=== PATIENT | male | born 1965 | race American Indian/Alaskan Native ===

== ENCOUNTER 2024-04-06 10:44 | Inpatient (IN) | payer OTHER, MEDICAID, SELFPAY ==
[2024-04-06] VITALS (10 sets, daily range): BP systolic 87–119; BP diastolic 54–74; PULSE 75–106; RESP 14–98; TEMP 36.7–37.7; O2SAT 95–100; BMI 29.1; BMI 28.3
--- NOTE | 2024-04-06 10:59 | EKG_ITS ---
[facility] Test Date: 2024-04-06 Pat Name: YAZAN WHITMORE Department: Room: - Gender: Male [employer]: : 1965 Requested By: Emelyn Mendoza Order Number: [id number] Reading MD: Emelyn Mendoza Measurements Intervals [place] Rate: 93 P: 10 HI: 158 QRS: 37 QRSD: 88 T: 43 QT: 339 QTc: 423 Interpretive Statements SINUS RHYTHM WITH OCCASIONAL VENTRICULAR PREMATURE COMPLEXES Compared to ECG 03/15/2024 22:12:43 Ventricular premature complex(es) now present Atrial fibrillation no longer present ST (T wave) deviation no longer present /store/S0/[id number]/ecg/[id number].pdf
--- NOTE | 2024-04-06 11:04 | PC.NURSE ---
Patient presents to the ER with complaint of chest heaviness following dialysis at 0835 this morning where they pulled 2.7. Hives and rash appearing 3 days ago following completion of Cipro 7 days ago for UTI. Patient is also hypotensive and complaining of chest/back pain.
[2024-04-06] MEDS: SODIUM CHLORIDE 0.9% 250 ML 250 ML 999 ML IV ×2 (11:24→12:00)
[2024-04-06] MEDS: fentaNYL CIT INJ 50 mCg/ML AMP 2ML IVP (11:24)
[2024-04-06] MEDS: FAMOTIDINE INJ 10 MG/ML VIAL 2 ML 20 MG IVP (11:25)
[2024-04-06] MEDS: MethylPREDNISolone SOD SUCC 62.5 MG/ML 2ML VIAL 125 MG IVP (11:25)
[2024-04-06] MEDS: DiphenhydrAMINE INJ 50 MG/ML VIAL 25 MG IVP (11:25)
--- NOTE | 2024-04-06 11:26 | XR_ITS ---
Examination: AP chest single view TECHNIQUE: AP portable upright chest single view Exam date and time: March 29, 2024 11:30 AM Comparison the second 2023 INDICATIONS: Onset chest pain today. FINDINGS: Apparent elevation left hemidiaphragm Right internal jugular dialysis catheter tip satisfactory position Moderate vascular congestion Mild prominence left ventricle IMPRESSION: Recommend lateral chest view follow-up to differentiate elevated left hemidiaphragm from retrocardiac gastric hernia
[2024-04-06 11:37] LABS: Basophils % (Auto) 0 % (0-2.5); Eosinophils % (Auto) 11 % (0-10); Hematocrit 33.9 % (41.0-53.0); Hemoglobin 10.9 g/dL (13.5-16.0); Immature Granulocytes % (Auto) 1 % (0-0); Lymphocytes # (Auto) 0.7 Thou/mm3 (1.0-4.8); Lymphocytes % (Auto) 7 % (10-50); Mean Corpuscular HGB Conc 32.2 g/dl (31.0-37.0); Mean Corpuscular Hemoglobin 27.8 pg (25.0-35.0); Mean Corpuscular Volume 87 fL (80-100); Monocytes # (Auto) 0.4 Thou/mm3 (0.0-0.8); Monocytes % (Auto) 4 % (0-12); Neutrophils # (Auto) 7.3 Thou/mm3 (1.8-7.7); Neutrophils % (Auto) 77 % (37-80); Nucleated Red Blood Cell % 0 /100 WBC (0); Platelet Count 239 Thou/mm3 (140-440); RDW Standard Deviation 53.6 fL (35.1-43.9); Red Blood Count 3.92 Miln/mm3 (4.50-5.90); White Blood Count 9.5 Thou/mm3 (3.8-10.6)
[2024-04-06 11:52] LABS: INR 1.1 (0.9-1.3); Partial Thromboplastin Time 35.3 Seconds (22.0-36.0); Prothrombin Time 11.7 Seconds (9.0-12.2)
--- NOTE | 2024-04-06 11:52 | EDNOTE_ITS ---
ED Chest Pain RME/HPI General Chief Complaint: Chest Pain Stated Complaint: chest pain after dialysis, cant pee Time Seen by Provider: 04/06/24 11:04 Arrival date/time: 04/06/24 10:44 RME / HPI RME / HPI narrative: Patient is a 58 year old male HX ESRD presenting to the ED BIBA from dialysis for low BP and chest pain post treatment. Reports accompanied upper back pain and states he cant pee. Does not rate or describe pain. Recent peritoneal catheter placed however has not been used yet. Denies fevers, chills, nausea,vomiting, diarrhea, constipation, urinary symptoms. Further history includes hypertension. Related Data Home Medications ?Medication ?Instructions ?Recorded ?Confirmed cetirizine 10 mg tablet 10 mg PO QDAY 10/07/23 04/06/24 sucroferric oxyhydroxide 500 mg 500 mg PO TIDWM 04/06/24 04/06/24 chewable tablet (Velphoro) Previous Rx's ?Medication ?Instructions ?Recorded lidocaine 5 % topical patch 1 patch topical QDAY back pain 1 10/11/23 (DermacinRx Lidocan) month #30 ea pantoprazole 40 mg tablet,delayed 40 mg PO QDAY #60 tabs 10/14/23 release sevelamer carbonate 800 mg tablet 2,400 mg (3 x 800 mg) PO TIDWM 30 03/17/24 days #270 tabs amlodipine 5 mg tablet 5 mg PO QDAY #30 tabs 04/08/24 calamine 8 %-zinc oxide 8 % lotion 1 applic top UD PRN Itching #177 mL 04/08/24 diphenhydramine HCl 25 mg capsule 25 mg PO BID #20 caps 04/08/24 (Benadryl) furosemide 20 mg tablet (Lasix) 20 mg PO BID #30 tabs 04/08/24 metoprolol tartrate 25 mg tablet 12.5 mg (1/2 x 25 mg) PO BID 30 04/08/24 days #30 tabs Allergies Allergy/AdvReac Type Severity Reaction Status Date / Time vancomycin Allergy Intermediate Rash Unverified 04/08/24 09:11 ciprofloxacin [From Cipro] Allergy Rash Verified 04/06/24 10:45 Review of Systems Review of Systems Narrative Review of Systems: Gen: No fever, no chills, no weight loss EYES: No discharge, no visual changes, no pain HEENT: No ear pain, no congestion, no sore throat PULM: No shortness of breath, no cough, no congestion CV: + chest pain, no dyspnea on exertion, no palpitations GI: No nausea, no vomiting, no diarrhea, no pain, no constipation : +urinary urgency. No frequency, no dysuria Musc/skel:+upper back pain. No joint pain Skin: No rash Psyc: No hallucinations, no depression Heme/Lymph: No easy bleeding or bruising tendencies Neuro: No weakness, no headache Past Medical History Past Medical History NEUROLOGIC: Negative Neurological Disorders or Seizures CARDIAC: Positive Cardiac Disorders, Cardiac Arrhythmia and Hypertension; Negative Congestive Heart Failure RESPIRATORY: Positive Pneumonia; Negative Chronic Obstructive Pulmonary Disease (COPD) GASTROINTESTINAL: Positive Gastrointestinal Disorders (umbilcal hernia), Gastrointestinal Bleed, Ulcer, Hemorrhoids and Obesity GENITOURINARY: Positive Genitourinary Disorders, Renal Disease and Dialysis MUSCULOSKELETAL: Negative Musculoskeletal Disorders ENDOCRINE: Negative Endocrine Disorders, Diabetes Mellitus Type 1 or Diabetes Mellitus Type 2 HEMATOLOGIC: Positive Blood Disorders and Anemia PSYCHO/SOCIAL: Positive Anxiety OTHER HISTORY: Positive Hospitalization, Blood Transfusions, Chicken Pox, Measles and Mumps; Negative Autoimmune Disease, Shingles, Falls, Blood Transfusion Reaction, Anesthesia Reactions, Chemotherapy, Radiation Therapy, MRSA, Cancer or Lung Cancer Family History FAMILY HISTORY: Positive Family Respiratory Disorders, Family Cardiac Disorders, Family Cancer and Family Surgery; Negative Family Psychiatric Problems, Family Gastrointestinal Problems or Family Anesthesia Reaction Surgical History SURGICAL: Positive Abdominal Surgery; Negative Cardiac Surgery Social History SMOKING STATUS: Never smoker SECOND HAND EXPOSURE: No ED Exam Narrative Physical exam: GENERAL APPEARANCE: alert and oriented x 4, well-developed, well-nourished, no acute distress HEENT: Normocephalic, atraumatic; pupils equal, round, reactive to light; EOMI; mucous membranes pink, moist; oropharynx clear NECK: Supple LUNGS: CTABL; no wheezes, no rales, no rhonchi HEART: Regular rate, regular rhythm; normal S1, S2; no murmurs ABDOMEN: non distended; normal BS; soft, no tenderness, no guarding, no rebound; no masses, no organomegaly, no hernia BACK: no CVA tenderness EXTREMITIES: atraumatic; no edema NEUROLOGIC: awake; alert and oriented x4; cranial nerves II-XII grossly intact; no focal sensory or motor deficits PSYCHIATRIC: appropriate mood and affect SKIN: warm, dry, diffuse urticarial rash confluent on chest and abdomen and extending onto upper and lower extremities Course Quality Measures none Orders Category Date Time Status COVID-19 Screening Questionnaire NOW Care 04/06/24 13:43 Completed Lunchroom Aide Q4H START 00 Care 04/06/24 11:26 Completed Decision to Admit X1 Care 04/06/24 13:43 Completed EKG (ED ONLY) *Do not use* NOW Care 04/06/24 10:59 Completed EKG (ED Only) Stat Exams 04/06/24 10:59 Draft XR chest 1V portable Stat Exams 04/06/24 11:26 Completed B-Type Natriuretic Peptide Stat Lab 04/06/24 11:15 Completed Blood Culture (Lab) Stat Lab 04/06/24 12:30 Completed Body Fld Cult w Lena & Gram St Routine Lab 04/06/24 12:45 Completed CBC Stat Lab 04/06/24 11:15 Completed Comprehensive Metabolic Panel Stat Lab 04/06/24 11:15 Completed Lactate (Lactic Acid) Stat Lab 04/06/24 11:15 Completed Lactic Acid, 3 HR Stat Lab 04/06/24 15:08 Completed Lipase Stat Lab 04/06/24 11:15 Completed Magnesium Stat Lab 04/06/24 11:15 Completed Partial Thromboplastin Time Stat Lab 04/06/24 11:15 Completed Peritoneal Cell Cnt/Diff Routine Lab 04/06/24 12:45 Completed Phosphorous Routine Lab 04/06/24 15:08 Completed Procalcitonin Stat Lab 04/06/24 11:15 Completed Prothrombin Time with INR Stat Lab 04/06/24 11:15 Completed Troponin I Stat Lab 04/06/24 11:15 Completed DiphenhydrAMINE INJ [Benadryl Inj] Med 04/06/24 11:15 Discontinued 25 mg IVP X1 ONE Famotidine Inj [Pepcid Inj] Med 04/06/24 11:15 Discontinued 20 mg IVP X1 ONE HYDROmorphone INJ [Dilaudid Inj] Med 04/06/24 14:57 Discontinued 0.5 mg IVP X1 ONE Lidocaine 2% Abboject 5 ml [Xylocaine 2% Abboject 5 ml] Med 04/06/24 12:16 Discontinued 100 mg IV X1 ONE Lidocaine Jelly 2% Urojet [Xylocaine Jelly 2% Urojet] Med 04/06/24 12:21 Discontinued See Dose Instructions TOP X1 ONE MethylPREDNISolone.* [SoluMEDROL Inj] Med 04/06/24 11:16 Discontinued 125 mg IVP X1 ONE Piper/Tazo 3.375 gm [Zosyn] Med 04/06/24 11:58 Discontinued 3.375 gm in 50 ml IV X1 Sodium Chloride 0.9% 250 ml [Ns] 250 ml Med 04/06/24 11:05 Discontinued IV 999 mls/hr Sodium Chloride 0.9% 250 ml [Ns] 250 ml Med 04/06/24 11:29 Discontinued IV 999 mls/hr Sodium Chloride 0.9% 500 ml [Ns] 500 ml Med 04/06/24 12:16 Discontinued IV 999 mls/hr Vancomycin Inj 1,000 mg Med 04/06/24 11:58 Discontinued Sodium Chloride 0.9% 250 ml [Ns] 250 ml IV X1 fentaNYL INJ [Sublimaze Inj] Med 04/06/24 11:15 Discontinued 50 mcg IVP X1 ONE Vital Signs Vital signs: Vital Signs Temperature 98.5 F 04/06/24 10:49 Pulse Rate 106 H 04/06/24 10:49 Respiratory Rate 18 04/06/24 10:49 Blood Pressure 87/56 L 04/06/24 10:49 Pulse Oximetry (%) 98 04/06/24 10:49 Oxygen Delivery Method Room Air 04/06/24 10:49 Chest Pain Patient data External records reviewed:: [facility] previous records Clinical information provided by:: patient Social determinants that could affect healthcare access:: none Patient has the following chronic illnesses:: ESRD , hypertension How is presenting disease/condition affected by chronic disease/condition?: exacerbated by Evaluation data The following diagnostics were reviewed and interpreted by me:: lab results, radiology exam(s) and EKG tracing(s) (Sinus rhythm, rate 93, normal axis, normal ST and T waves, no acute ischemic changes. ) Lab and/or radiology exams considered but not ordered:: none Interpretation Summary: Lactic 4.00 Ordering Physician: Emelyn Oquendo MD Date of Service: 04/06/24 Procedure(s): XR chest 1V portable Accession Number(s): [id number] cc: Vini Gusman MD; Lore Castañeda MD; Emelyn Oquendo MD~ Examination: AP chest single view TECHNIQUE: AP portable upright chest single view Exam date and time: March 29, 2024 11:30 AM Comparison the second 2023 INDICATIONS: Onset chest pain today. FINDINGS: Apparent elevation left hemidiaphragm Right internal jugular dialysis catheter tip satisfactory position Moderate vascular congestion Mild prominence left ventricle IMPRESSION: Recommend lateral chest view follow-up to differentiate elevated left hemidiaphragm from retrocardiac gastric hernia Dictated By: Vini Gusman MD Signed By: <Electronically signed by Vini Gusman MD in OV> 04/06/24 1152 Medications / Prescriptions Medications or Prescriptions considered but not ordered:: none Medication administrations:: Medication Administration History Discontinued Medications Acetaminophen (Acetaminophen 325 Mg Tablet) 650 mg PO Q6H PRN PRN Reason: Fever >101.5 Stop: 05/06/24 15:02 Calamine (Calamine Lotion 120 Ml Btl) 0 ml TOP UD PRN; Protocol PRN Reason: ITCHING Stop: 05/07/24 15:01 Last Admin: 04/07/24 18:08 Dose: 1 applicatio Documented By: DM Diphenhydramine HCl (Diphenhydramine Inj 50 Mg/Ml Vial) 25 mg IVP X1 ONE Stop: 04/06/24 11:16 Last Admin: 04/06/24 11:25 Dose: 25 mg Documented By: RD Diphenhydramine HCl (Diphenhydramine 25 Mg Capsule) 25 mg PO QDAY PRN PRN Reason: itchiness Stop: 05/06/24 15:59 Last Admin: 04/06/24 19:48 Dose: 25 mg Documented By: MP Diphenhydramine HCl (Diphenhydramine 25 Mg Capsule) 25 mg PO Q6HR PRN; Protocol PRN Reason: itchiness Stop: 05/06/24 15:45 Last Admin: 04/07/24 23:19 Dose: 25 mg Documented By: AL Doxycycline Hyclate (Doxycycline 100 Mg Tablet) 100 mg PO BID RAFIA Stop: 04/14/24 10:59 Last Admin: 04/08/24 09:59 Dose: Not Given Documented By: VS Non-Admin Reason: Not In Room Admin: 04/07/24 21:02 Dose: 100 mg Documented By: Admin: 04/07/24 14:02 Dose: 100 mg Documented By: NIESHA Comments: pt was in dialysis, ok to give at this time per Dr Rosado and pharmacist Ashley. Epoetin Jesus (Epoetin Jesus-Epbx Inj 10,000 Unit/Ml Vial (Esrd)) 10,000 unit SC X1 ONE Stop: 04/07/24 13:01 Last Admin: 04/07/24 13:02 Dose: 10,000 unit Documented By: MONIKA Famotidine (Famotidine Inj 10 Mg/Ml Vial 2 Ml) 20 mg IVP X1 ONE Stop: 04/06/24 11:16 Last Admin: 04/06/24 11:25 Dose: 20 mg Documented By: GEORGI Fentanyl Citrate (Fentanyl Cit Inj 50 Mcg/Ml Amp 2ml) 50 mcg IVP X1 ONE Stop: 04/06/24 11:16 Last Admin: 04/06/24 11:24 Dose: 50 mcg Documented By: GEORGI Heparin Sodium (Porcine) (Heparin Sod Inj 1000 Unit/Ml Vial 10 Ml) 3,500 unit INDWELLCAT X1 PRN PRN Reason: DIALYSIS Stop: 04/21/24 12:22 Hydromorphone HCl (Hydromorphone Inj 2 Mg/Ml Vial) 0.5 mg IVP X1 ONE Stop: 04/06/24 14:58 Last Admin: 04/06/24 15:41 Dose: 0.5 mg Documented By: GEORGI Sodium Chloride (Ns) 250 mls @ 999 mls/hr IV .Q16M ONE Stop: 04/06/24 11:20 Last Infusion: 04/06/24 11:45 Dose: Infused Documented By: Admin: 04/06/24 11:24 Dose: 999 mls/hr Documented By: GEORGI Sodium Chloride (Ns) 250 mls @ 999 mls/hr IV .Q16M ONE Stop: 04/06/24 11:44 Last Infusion: 04/06/24 12:20 Dose: Infused Documented By: Admin: 04/06/24 12:00 Dose: 999 mls/hr Documented By: GEORGI Vancomycin HCl 1,000 mg/ (Sodium Chloride) 250 mls @ 250 mls/hr IV X1 ONE Stop: 04/06/24 12:57 Last Infusion: 04/06/24 14:56 Dose: 0 mls/hr Documented By: Admin: 04/06/24 14:32 Dose: 250 mls/hr Documented By: Piperacillin/Tazobactam/Dextrose (Zosyn) 3.375 gm in 50 mls @ 100 mls/hr IV X1 ONE Stop: 04/06/24 12:27 Last Infusion: 04/06/24 14:25 Dose: Infused Documented By: Admin: 04/06/24 13:50 Dose: 100 mls/hr Documented By: DELFINO Sodium Chloride (Ns) 500 mls @ 999 mls/hr IV .Q31M ONE Stop: 04/06/24 12:46 Last Infusion: 04/06/24 13:00 Dose: Infused Documented By: Admin: 04/06/24 12:25 Dose: 999 mls/hr Documented By: GEORGI Piperacillin/Tazobactam/Dextrose (Zosyn) 3.375 gm in 50 mls @ 100 mls/hr IV Q8HR RAFIA Stop: 04/13/24 15:21 Last Admin: 04/07/24 05:21 Dose: 100 mls/hr Documented By: Infusion: 04/06/24 22:10 Dose: Infused Documented By: Admin: 04/06/24 21:40 Dose: 100 mls/hr Documented By: Infusion: 04/06/24 17:34 Dose: Infused Documented By: Admin: 04/06/24 17:04 Dose: 100 mls/hr Documented By: GEORGI Piperacillin/Tazobactam/Dextrose (Zosyn) 3.375 gm in 50 mls @ 12.5 mls/hr IV Q12HR RAFIA Stop: 04/14/24 20:59 Last Admin: 04/07/24 21:02 Dose: 12.5 mls/hr Documented By: ALISON Lidocaine (Lidocaine 5% 1 Patch) 1 patch TOP X1 ONE Stop: 04/07/24 23:08 Last Admin: 04/07/24 23:18 Dose: 1 patch Documented By: ALISON Lidocaine HCl (Lidocaine Inj 2% 20 Mg/Ml Syringe 5 Ml) 100 mg IV X1 ONE Stop: 04/06/24 12:17 Last Admin: 04/06/24 13:21 Dose: Not Given Documented By: GEORGI Non-Admin Reason: Cancelled by Provider Lidocaine HCl (Lidocaine Jelly 2% (Urojet) 10 Ml Tube) 0 ml TOP X1 ONE Stop: 04/06/24 12:22 Last Admin: 04/06/24 12:12 Dose: 10 ml Documented By: GEORGI Methylprednisolone Sodium Succinate (Methylprednisolone Sod Succ 62.5 Mg/Ml 2ml Vial) 125 mg IVP X1 ONE Stop: 04/06/24 11:17 Last Admin: 04/06/24 11:25 Dose: 125 mg Documented By: GEORGI Non-Formulary Medication (Sucroferric Oxyhydroxide [Velphoro]) 500 mg PO TIDWM [facility] Stop: 05/07/24 07:59 Last Admin: 04/08/24 12:30 Dose: Not Given Documented By: TAMEKA Non-Admin Reason: Medication Not Available Admin: 04/08/24 09:58 Dose: Not Given Documented By: BEBA Non-Admin Reason: Medication Not Available Admin: 04/07/24 17:50 Dose: Not Given Documented By: NIESHA Non-Admin Reason: Medication Not Available Admin: 04/07/24 13:53 Dose: Not Given Documented By: NIESHA Non-Admin Reason: Medication Not Available Admin: 04/07/24 07:58 Dose: Not Given Documented By: NIESHA Non-Admin Reason: Medication Not Available Ondansetron HCl (Ondansetron Inj 2 Mg/Ml Inj 2 Ml) 4 mg IV Q6H PRN; Protocol PRN Reason: NAUSEA OR VOMITING Stop: 05/06/24 15:02 Pantoprazole Sodium (Pantoprazole 40 Mg Tablet) 40 mg PO QDAY [facility] Stop: 05/07/24 08:59 Last Admin: 04/08/24 09:59 Dose: Not Given Documented By: VS Non-Admin Reason: Not In Room Admin: 04/07/24 08:00 Dose: 40 mg Documented By: NIESHA Pharmacy Consult (Pharmacy To Dose Vancomycin) 1 each IV QDAY PRN PRN Reason: PROTOCOL Stop: 05/07/24 08:59 Prednisone (Prednisone 20 Mg Tablet) 20 mg PO QDAY [facility] Stop: 05/07/24 18:29 Last Admin: 04/08/24 09:59 Dose: Not Given Documented By: BEBA Non-Admin Reason: Not In Room Admin: 04/07/24 18:53 Dose: 20 mg Documented By: NIESHA Sevelamer Carbonate (Sevelamer Carbonate 800 Mg Tablet) 800 mg PO TIDWM RAFIA Stop: 05/06/24 17:29 Last Admin: 04/08/24 12:30 Dose: 800 mg Documented By: Admin: 04/08/24 09:58 Dose: Not Given Documented By: VS Non-Admin Reason: Not In Room Admin: 04/07/24 17:50 Dose: 800 mg Documented By: Admin: 04/07/24 13:57 Dose: Not Given Documented By: NIESHA Non-Admin Reason: Not In Room Comments: Pt was in dialysis. Admin: 04/07/24 07:57 Dose: 800 mg Documented By: Admin: 04/06/24 18:16 Dose: 800 mg Documented By: Ivanna see above Consultations Consultation(s) initiated? (list below): Yes Consultation #1 (Physician, Specialty, Details): Discussed with automation qa tester Dr. Early Time: 11:55 Consultation #2 (Physician, Specialty, Details): Discussed with hospitalist Dr. Valera regarding to the patients current status and results, agrees to admission Time: 13:30 Diagnosis Chest Pain Differential Diagnosis: other (rash, drug erruption, allergic reaction, viral exanthem, sepsis, dehydration, ACS) Most likely diagnosis given after review of the tests above:: sepsis, rash, hypotension Admission Indicated Admission indicated?: indicated Admission Request Was there a request for admission?: Yes Admission Attestation Admission request attestation: Discussed case with [] from Hospitalist service regarding admission. Discussed patients ED course, exam findings, labs, and radiology results. The Hospitalist [agrees,declines] to accept the patient for admission. Disposition Plan Disposition Plan: Admit Critical Care Time Critical Care Time Critical Care Time: Yes Total Critical Care Time (min.): 35 Attestation: The high probability of sudden, clinically significant deterioration in the patient?s condition required the highest level of my preparedness to intervene urgently. The services I provided to this patient were to treat and/or prevent clinically significant deterioration. Services included the following: chart data review, reviewing nursing notes and/or old charts, documentation time, fashion consultant collaboration regarding findings and treatment options, medication orders and management, direct patient care, vital sign assessments and ordering, interpreting and reviewing diagnostic studies and lab tests. Aggregate critical care time includes only time during which I was engaged in work directly related to the patient?s care, as described above, whether at bedside or elsewhere in the Emergency Department. It did not include time spent performing other reported procedures or the services of residents, students, nurses or physician assistants. Discharge Plan Plan Patient Disposition: Admit Acute Care w/in Hospital Problem List Clinical Impression: Sepsis
[2024-04-06 12:01] LABS: B-Type Natriuretic Peptide 27 pg/mL (0-100)
[2024-04-06 12:11] LABS: Alanine Aminotransferase 21 U/L (10-49); Albumin, Serum 3.6 gm/dL (3.5-5.0); Albumin/Globulin Ratio 1.2 (1.2-2.2); Alkaline Phosphatase 98 U/L (46-116); Anion Gap 10 (7-16); Aspartate Amino Transferase 13 U/L (0-34); BUN/Creatinine Ratio 5 Ratio (12-20); Bilirubin,Total 0.5 mg/dL (0.3-1.2); Blood Urea Nitrogen 36 mg/dL (9-23); Calcium (Corrected) 9.3 mg/dL (8.5-10.1); Carbon Dioxide 25.1 mMol/L (20.0-31.0); Chloride 100 mMol/L (98-107); Globulin 3.1 gm/dL (2.3-3.5); Glucose 172 mg/dL (74-106); Lipase 29 U/L (12-53); Magnesium 1.8 mg/dL (1.6-2.6); Osmolality,Calculated 282 (275-295); Potassium 3.9 mMol/L (3.4-5.1); Procalcitonin 0.64 ng/ml (0.0-0.49); Sodium 135 mMol/L (136-145); Total Protein 6.7 gm/dL (5.7-8.2); Troponin I < 0.020 ng/mL (0.0-0.045); eGFR 9 See Note
[2024-04-06] MEDS: LIDOCAINE JELLY 2% (Urojet) 10 ML TUBE TOP (12:12)
[2024-04-06] MEDS: SODIUM CHLORIDE 0.9% 500 ML 500 ML 999 ML IV (12:25)
[2024-04-06 13:19] LABS: Peritoneal Fluid WBC 1344 /cmm
[2024-04-06 13:27] LABS: Peritoneal Fluid Color Straw
[2024-04-06 13:28] LABS: Peritoneal Fluid Appearance Cloudy; Peritoneal Fluid Mononuclear 71 %; Peritoneal Fluid Polynuclear 29 %; RBC,Peritoneal Fluid 1000 /cmm
[2024-04-06] MEDS: PIPER/TAZO 3.375 GM 3.375 GM/50 ML BAG IV ×3 (13:50→21:40)
--- NOTE | 2024-04-06 13:56 | PC.NURSE ---
HOSPITALIST AT BEDSIDE.
[2024-04-06] MEDS: Vancomycin Inj 1,000 MG in SODIUM CHLORIDE 0.9% 250 ML 250 ML 250 MG IV (14:32)
[2024-04-06 14:33] LABS: Reflex Lactate? Y
--- NOTE | 2024-04-06 14:51 | PC.NURSE ---
Patient states pain 8/10. Informed ER provider and received verbal order for 0.5mg hydromorphone. Patient states neck is itchy and burning after Vancomycin was started. Informed ER provider and givenv erbal order to stop infusion.
[2024-04-06] MEDS: HYDROmorphone INJ 2 MG/ML VIAL 0.5 MG IVP (15:41)
[2024-04-06 15:53] LABS: Phosphorous 3.1 mg/dL (2.4-5.1)
--- NOTE | 2024-04-06 16:32 | XR_ITS ---
Examination: CT chest, without intravenous contrast. CT abdomen, without intravenous contrast. CT pelvis, without intravenous contrast. 2-D sagittal and coronal reconstructions. 3-D reconstructions. Date and time of exam:April 06, 2024 at 1723 hrs. Indications: Abdominal pain and hypertension today CTDI vol (mgy) 9.75 DLP (MGycm)764 Technique: Multiple CT images, 3.0 mm slice thickness, obtained chest, abdomen, pelvis, with the high-resolution 64 slice scanner.. Sagittal and coronal 2-D reconstructions are obtained. 3-D reconstructions Low dose protocols were performed. One or more of the following dose reduction techniques were used; automated exposure control, adjustment of the mA and/or KV according to patient size, use of iterative reconstruction technique. Findings: Right internal jugular dialysis catheter tip SVC satisfactory position Aorta is not enlarged No pulmonary artery enlargement Mild enlargement cardiac contour No paratracheal tracheobronchial or bronchopulmonary adenopathy Large retrocardiac gastric hernia 5 mm pulmonary nodule right lower lobe image 116 Moderate vascular congestion No lobar pneumonia No visualized liver or splenic lesions No definite gallstones No pancreatic or adrenal mass Atrophic kidneys no hydronephrosis Aorta normal size Peritoneal dialysis catheter in the right pelvis adjacent to the colon No abdominal or pelvic abscess No peritonitis pattern Mediolateral prostate dimension 4.0 cm Tiny fat-containing inguinal hernias Moderate osteopenia Impression: Moderate vascular congestion No lobar pneumonia 5 mm pulmonary nodule right lower lobe, recommend imaging follow-up No abdominal or pelvic abscess No findings of peritonitis Peritoneal dialysis catheter in the right pelvis adjacent to the colon
--- NOTE | 2024-04-06 16:39 | ESHP_ITS ---
<Statement entered by Reggie Roldan MD - 04/06/24 16:46> This patient 58-year-old male with past medical history of ESRD on hemodialysis presented with hypotension postdialysis and recently received peritoneal dialysis catheter, hypertension and was getting education on peritoneal dialysis and peritoneal dialysis has not been started yet. Patient was found to have 1 out of 4 SIRS criteria with tachycardia and possible source related to GI secondary to peritoneal dialysis catheter. Lactic acidosis likely related to hypotension. Patient is admitted for workup of sepsis with source unknown at this point likely related to PD catheter, delayed hypersensitivity reaction, drug eruption. Ordered CT chest abdomen pelvis. Follow-up on blood cultures/MRSA screen. Started on IV antibiotic therapy. Nephrology will follow the case. Currently holding antihypertensives given soft blood pressure. Full med rec pending. Of note, patient was taking ciprofloxacin for UTI a week ago and while he was taking ciprofloxacin day 5 he noticed pain and flare reaction first on back transition to chest and then on his lower extremities which still can be seen. The rash is blanchable and itchy. Will continue with Benadryl as needed for that and likely monitor tomorrow. Added ciprofloxacin in allergy list for patient. All labs and orders were reviewed. I saw and examined the patient, and I agree with current management stated by Dr Alonzo DO,PGY1. Plan of care was discussed with the attending physician and resident physician. Disclaimer: Despite multiple revisions, due to the dictation software being used, the document bellow may not be free of grammatical errors including phonetic/typographic errors. However, this does not deter from our commitment to providing health care in the patient's best interest in mind. Dr. Yuli MD, PGY 2 Documentation for date of: 04/06/24 HPI History of Present Illness History of present illness: Mike Samayoa is a 58-year-old male with a past medical history of ESRD (Saturday, Dr. Early), FSGS, hypertension, GERD, GI bleed, and seasonal allergies who comes to the ED for evaluation of weakness, hypotension, lower back pain, chest pressure and skin rash. Patient reports that he was getting dialysis today, had 2.6 L of fluid removed, and notes that his blood pressure had been low, around the upper 80s systolic. He was also complaining of some chest pressure and felt weak as well. He also stated that he had recently been discharged from [facility] and was discharged on a course of antibiotics called ciprofloxacin and his last dose being on March 26, and shortly after his last dose he started to notice a rash that had covered his upper and lower extremities including his abdomen and back that he described as red and itchy at times. He also states that he has started to use a new laundry detergent shortly after that and also says that he began using a new bacterial soap which he washed with his entire body and that also came after the last dose of ciprofloxacin. He does state that he had a rash not is bad as this but had it when he was a child. Says that he sees an chemical milling processor outpatient as well. Says that his gas jockey is Dr. Early. Denies any symptoms of anaphylaxis including shortness of breath, tongue enlargement, throat closing. Says that he has been taking Benadryl for his rash which has slightly improved the rash but also noticed that he has been using hydrocortisone all over his body but that does not help his rash. He is not sure where his rash is coming from. Says that he has some chest pressure and is not pain, says he feels a bit weak and noticed that sometimes happens after dialysis. Also endorses chronic lower back pain. No other complaints at this time. ED course: He arrived to the ED with tachycardia (105). He was worked up and was found to have hemoglobin 10.9, lactate of 4, glucose of 172, Pro-Tommie 0.64, BUN/creatinine of 36 and 7 respectively. He was given Pepcid 20, Solu-Medrol 125, Benadryl 25 for his rash, and was also given a lidocaine patch for his back pain, fentanyl 50 mcg x1 and 1 dose of Zosyn. He was also given 1 L of fluid. Medicine was consulted and patient was admitted to the floors. Past medical history: As above Surgical history: Peritoneal catheter placement Allergies: Will document ciprofloxacin as allergy now Meds: Metoprolol, Lasix, sevelamer, amlodipine, Protonix Social history: Does not drink, does not use illicit drugs, smoking history about 20 years ago Review of Systems Review of Systems Narrative Review of Systems: 12 point ROS reviewed and is otherwise negative unless stated in HPI Exam Vital Signs Temp Pulse Resp BP Pulse Ox O2 Del Method 99.9 F 80 14 114/74 98 Room Air 04/06/24 15:34 04/06/24 15:34 04/06/24 15:34 04/06/24 15:34 04/06/24 15:34 04/06/24 15:34 Narrative Exam General: AAOx3, NAD, HEENT: Dry mucous membranes, conjunctiva clear, EOMI, PERRLA, Cardiovascular: S1, S2, radial pulses +2 bilat, RRR, catheter present on right side no signs of infection Pulmonary: no cough, some crackles GI: No tenderness to light or deep palpitation, no guarding, rigidity, rebound tenderness or distension, peritoneal catheter present, no signs of infection around site Extremities: No presence of trace or pitting edema in lower extremities bilaterally, dorsalis pedis pulses +2 bilaterally Skin:Diffuse erythematous rash in upper and lower extremities, abdomen, back, your urticarial flat lesions throughout entire body Neuro: AAOx3, no focal motor or sensory deficits in the UE or LE bilat Psych: Good judgement, thought and behavior. Cooperative Results: Labs 04/07/24 05:33 04/07/24 05:33 Labs: Short CBC 04/06/24 Range/Units 11:15 WBC 9.5 (3.8-10.6) Thou/mm3 Hgb 10.9 L (13.5-16.0) g/dL Hct 33.9 L (41.0-53.0) % Plt Count 239 D (140-440) Thou/mm3 BMP 04/06/24 11:15 Sodium 135 L Potassium 3.9 Chloride 100 Carbon Dioxide 25.1 BUN 36 H Creatinine 7.0 H* Glucose 172 H Calcium 9.0 Cardiac Enzymes 04/06/24 Range/Units 11:15 Troponin I < 0.020 (0.0-0.045) ng/mL Liver Function 04/06/24 Range/Units 11:15 Total Bilirubin 0.5 (0.3-1.2) mg/dL AST 13 (0-34) U/L ALT 21 (10-49) U/L Alkaline Phosphatase 98 (46-116) U/L Albumin 3.6 (3.5-5.0) gm/dL Quality Measures Quality Measures none Medications Home Medications and Allergies Home Medications ?Medication ?Instructions ?Recorded ?Confirmed ?Type cetirizine 10 mg tablet 10 mg PO QDAY 10/07/23 04/06/24 History furosemide 40 mg tablet 40 mg PO BID 11/25/23 04/06/24 History metoprolol tartrate 50 mg tablet 50 mg PO BID 11/25/23 04/06/24 History amlodipine 5 mg tablet 5 mg PO BID 04/06/24 04/06/24 History sucroferric oxyhydroxide 500 mg 500 mg PO TIDWM 04/06/24 04/06/24 History chewable tablet (Velphoro) Allergies Allergy/AdvReac Type Severity Reaction Status Date / Time ciprofloxacin [From Cipro] Allergy Rash Verified 04/06/24 10:45 Visit Medications Acetaminophen (Acetaminophen 325 Mg Tablet) 650 mg PO Q6H PRN PRN Reason: Fever >101.5 Stop: 05/06/24 15:02 Diphenhydramine HCl (Diphenhydramine 25 Mg Capsule) 25 mg PO QDAY PRN PRN Reason: itchiness Stop: 05/06/24 15:59 Piperacillin/Tazobactam/Dextrose (Zosyn) 3.375 gm in 50 mls @ 100 mls/hr IV Q8HR [facility] Stop: 04/13/24 15:21 Ondansetron HCl (Ondansetron Inj 2 Mg/Ml Inj 2 Ml) 4 mg IV Q6H PRN; Protocol PRN Reason: NAUSEA OR VOMITING Stop: 05/06/24 15:02 Pantoprazole Sodium (Pantoprazole 40 Mg Tablet) 40 mg PO QDAY [facility] Stop: 05/07/24 08:59 Sevelamer Carbonate (Sevelamer Carbonate 800 Mg Tablet) 800 mg PO TIDWM [facility] Stop: 05/06/24 17:29 Discontinued Medications Diphenhydramine HCl (Diphenhydramine Inj 50 Mg/Ml Vial) 25 mg IVP X1 ONE Stop: 04/06/24 11:16 Last Admin: 04/06/24 11:25 Dose: 25 mg Famotidine (Famotidine Inj 10 Mg/Ml Vial 2 Ml) 20 mg IVP X1 ONE Stop: 04/06/24 11:16 Last Admin: 04/06/24 11:25 Dose: 20 mg Fentanyl Citrate (Fentanyl Cit Inj 50 Mcg/Ml Amp 2ml) 50 mcg IVP X1 ONE Stop: 04/06/24 11:16 Last Admin: 04/06/24 11:24 Dose: 50 mcg Hydromorphone HCl (Hydromorphone Inj 2 Mg/Ml Vial) 0.5 mg IVP X1 ONE Stop: 04/06/24 14:58 Last Admin: 04/06/24 15:41 Dose: 0.5 mg Sodium Chloride (Ns) 250 mls @ 999 mls/hr IV .Q16M ONE Stop: 04/06/24 11:20 Last Infusion: 04/06/24 11:45 Dose: Infused Sodium Chloride (Ns) 250 mls @ 999 mls/hr IV .Q16M ONE Stop: 04/06/24 11:44 Last Infusion: 04/06/24 12:20 Dose: Infused Vancomycin HCl 1,000 mg/ (Sodium Chloride) 250 mls @ 250 mls/hr IV X1 ONE Stop: 04/06/24 12:57 Last Infusion: 04/06/24 14:56 Dose: 0 mls/hr Piperacillin/Tazobactam/Dextrose (Zosyn) 3.375 gm in 50 mls @ 100 mls/hr IV X1 ONE Stop: 04/06/24 12:27 Last Infusion: 04/06/24 14:25 Dose: Infused Sodium Chloride (Ns) 500 mls @ 999 mls/hr IV .Q31M ONE Stop: 04/06/24 12:46 Last Infusion: 04/06/24 13:00 Dose: Infused Lidocaine HCl (Lidocaine Inj 2% 20 Mg/Ml Syringe 5 Ml) 100 mg IV X1 ONE Stop: 04/06/24 12:17 Last Admin: 04/06/24 13:21 Dose: Not Given Lidocaine HCl (Lidocaine Jelly 2% (Urojet) 10 Ml Tube) 0 ml TOP X1 ONE Stop: 04/06/24 12:22 Last Admin: 04/06/24 12:12 Dose: 10 ml Methylprednisolone Sodium Succinate (Methylprednisolone Sod Succ 62.5 Mg/Ml 2ml Vial) 125 mg IVP X1 ONE Stop: 04/06/24 11:17 Last Admin: 04/06/24 11:25 Dose: 125 mg Pharmacy Consult (Pharmacy To Dose Vancomycin) 1 each IV QDAY PRN PRN Reason: PROTOCOL Stop: 05/07/24 08:59 Assessment & Plan Plan Assessment Mike Samayoa is a 58-year-old male with a past medical history of ESRD (Saturday, Dr. Early), FSGS, hypertension, GERD, GI bleed, and seasonal allergies who was admitted for sepsis and allergic reaction. #Sepsis #? Cellulitis Source: Abdomen, skin, blood, or urine Patient's presenting with SIRS criteria (tachycardic), source at this time is unknown Lactate 4.0, no white count Patient is having diffuse erythematous rash, reported some tenderness on left chest Patient also has catheter on right side of chest for dialysis and also has peritoneal catheter, diffuse erythema in both locations Patient has been given 1 L bolus at this time, will limited as patient has history of ESRD and HFrEF Peritoneal catheter was put in recently, around March 19, has not been draining any purulent fluid at this time Plan: ? On broad-spectrum antibiotics, Vanco and Zosyn at this time ?*CT chest, abdomen, pelvis ?*MRSA nares ?*Follow-up blood cultures ?*Follow-up peritoneal culture #Erythematous rash #History of seasonal allergies DDx: Hypersensitivity type IV versus type III, drug exanthem, vasculitis, infectious Etiology: Ciprofloxacin, new laundry detergent, new soap, other Patient has been reporting that he has been having a worsening rash throughout his upper and lower extremities, abdomen, back Says that he has used a new laundry detergent Also says that he recently finished a dose of ciprofloxacin, last taken on 03/26, no other medicines at this time Also says that he wiped his entire body with a new bacterial soap for peritoneal dialysis, but rash preceded that Was given Solu-Medrol 125, Pepcid 20, Benadryl 25 in the ED Reports that his rash is slightly improving, and has no alarming symptoms of anaphylaxis at this time Eosinophilia seen on CBC We will continue to workup Patient does see chemical milling processor outpatient Plan: ? Benadryl as needed ? Avoid any Cipro and other medicines that patient is allergic to ? Continue to monitor for anaphylactic symptoms #Hypotension Could be related to hypersensitivity, and dialysis Fluid responsive, given 1 L bolus Plan: ? Fluid restriction due to patient being CHF and ESRD ? Continue to monitor symptoms ? As above #Lactic acidosis Likely secondary to hypotension and/or erythematous rash In the ER, lactate was 4 Plan: ? Continue to trend #History ESRD Dr. Early gas jockey, Saturday Patient came from dialysis, removed 2.7 L today Does not use peritoneal catheter at this point Plan: ? Resumed home sevelamer 800 3 times daily ? Monitor electrolytes and CMP ?*Nephrology consult ?*Strict JACOBO's ?*Fluid restriction 1500 cc/day #History of HFrEF Recent echo in March 2024 shows normal LV, mild MR and TR and EF of 45 to 50% Plan: ? Holding home Lasix and GDMT therapy in setting of hypotension #History of hypertension Has metoprolol tartrate 50 Mg twice daily and amlodipine 10 Mg daily Plan: ? Holding antihypertensives in setting of hypotension #Seasonal allergies Plan: ? Benadryl as needed #Normocytic anemia Secondary to ESRD 10.9 hemoglobin Plan: ? Monitor CBC ?Transfusion protocol below 7 for hemoglobin #Health Maintenance Disposition: Telemetry DVT prophylaxis: SCDs GI prophylaxis: Protonix Diet: Renal CODE STATUS: Full The patient's management plan was discussed with my attending physician Dr. oSto MD and my senior resident, Dr. Yuli Rosado, PGY-1 Attending Provider Attestation/Addendum I have examined the patient, reviewed labs and imaging findings, discussed the case with the resident(s), and reviewed entered orders. I agree with the plan of care as outlined in this note, with these additional summaries/recommendations: Patient sent from hemodialysis unit for hypotension. Patient had 2.7 L removed during hemodialysis which was then stopped. Patient's dialysis schedule is Saturday. We will consult patient's gas jockey Dr. Early to continue hemodialysis while hospitalized. Patient diagnosed with sepsis with possible sources of cellulitis versus bacteremia versus urinary tract infection versus less likely bacterial peritonitis. Patient received 1 L fluid bolus but did not receive 30 cc/kg for history of ESRD. We will start broad-spectrum antibiotics. Blood cultures, peritoneal culture, and urine cultures ordered. Follow-up results when available. Lactic acid 4.0 on admission status post 1 L fluid bolus and we will repeat level. Most likely type A lactic acidosis from hypotension versus type B. Patient also noted to have relatively diffuse, erythematous, circumferential, raised, and warm to touch rash on chest, abdomen, upper and lower extremities. Rash is nontender to touch. Etiology for rash remains unknown at this time but possible etiologies include delayed hypersensitivity reaction from recent ciprofloxacin, contact dermatitis from new soap, versus least likely vasculitis. Patient does follow an chemical milling processor for history of seasonal allergies. He denies any similar rash in the past except for remote history in childhood. Patient was given famotidine, Benadryl, and IV Solu-Medrol in the emergency department. We will monitor for improvement. We will obtain CT chest and abdomen. If no improvement patient may require skin biopsy. Patient updated on the plan and in agreement. Repeat chemistry and hematology panel in AM. Dr. Valera
--- NOTE | 2024-04-06 17:49 | PC.NURSE ---
Report given to Laura ROBBINS at 1715 in Tele via phone
[2024-04-06] MEDS: SEVELAMER CARBONATE 800 MG TABLET PO (18:16)
[2024-04-06] MEDS: DiphenhydrAMINE 25 MG CAPSULE PO (19:48)
[2024-04-07] VITALS (23 sets, daily range): BP systolic 95–138; BP diastolic 62–76; PULSE 74–96; RESP 16–100; TEMP 36.1–36.9; O2SAT 95–99
[2024-04-07] MEDS: PIPER/TAZO 3.375 GM 3.375 GM/50 ML BAG IV ×2 (05:21→21:02)
[2024-04-07 06:08] LABS: Basophils % (Auto) 0 % (0-2.5); Eosinophils # (Auto) 0.4 Thou/mm3 (0.0-0.5); Eosinophils % (Auto) 4 % (0-10); Hematocrit 28.4 % (41.0-53.0); Immature Granulocytes % (Auto) 1 % (0-0); Lymphocytes # (Auto) 0.9 Thou/mm3 (1.0-4.8); Lymphocytes % (Auto) 8 % (10-50); Mean Corpuscular HGB Conc 31.7 g/dl (31.0-37.0); Mean Corpuscular Hemoglobin 27.4 pg (25.0-35.0); Mean Corpuscular Volume 86 fL (80-100); Monocytes # (Auto) 0.6 Thou/mm3 (0.0-0.8); Monocytes % (Auto) 5 % (0-12); Neutrophils # (Auto) 8.8 Thou/mm3 (1.8-7.7); Neutrophils % (Auto) 82 % (37-80); Nucleated Red Blood Cell % 0 /100 WBC (0); Platelet Count 185 Thou/mm3 (140-440); RDW Standard Deviation 55.5 fL (35.1-43.9); Red Blood Count 3.29 Miln/mm3 (4.50-5.90); White Blood Count 10.7 Thou/mm3 (3.8-10.6)
[2024-04-07 06:28] LABS: INR 1.1 (0.9-1.3); Partial Thromboplastin Time 29.6 Seconds (22.0-36.0); Prothrombin Time 11.7 Seconds (9.0-12.2)
[2024-04-07 06:57] LABS: Anion Gap 8 (7-16); BUN/Creatinine Ratio 6 Ratio (12-20); Blood Urea Nitrogen 53 mg/dL (9-23); Carbon Dioxide 24.9 mMol/L (20.0-31.0); Chloride 100 mMol/L (98-107); Creatinine (Component) 9.1 mg/dL (0.6-1.3); Potassium 5.1 mMol/L (3.4-5.1); Sodium 133 mMol/L (136-145)
[2024-04-07 06:58] LABS: Alanine Aminotransferase 19 U/L (10-49); Albumin, Serum 3.5 gm/dL (3.5-5.0); Albumin/Globulin Ratio 1.1 (1.2-2.2); Alkaline Phosphatase 84 U/L (46-116); Aspartate Amino Transferase 11 U/L (0-34); Bilirubin,Total 0.3 mg/dL (0.3-1.2); Calcium 8.5 mg/dL (8.3-10.6); Calcium (Corrected) 8.9 mg/dL (8.5-10.1); Estimated Creatinine Clearance 11.1 mL/min (>60); Globulin 3.1 gm/dL (2.3-3.5); Glucose 133 mg/dL (74-106); Magnesium 2.2 mg/dL (1.6-2.6); Osmolality,Calculated 282 (275-295); Phosphorous 4.7 mg/dL (2.4-5.1); Total Protein 6.6 gm/dL (5.7-8.2); Vancomycin,Random 3.5 mcg/mL; eGFR 6 See Note
[2024-04-07] MEDS: SEVELAMER CARBONATE 800 MG TABLET PO ×2 (07:57→17:50)
[2024-04-07] MEDS: PANTOPRAZOLE 40 MG TABLET PO (08:00)
--- NOTE | 2024-04-07 09:50 | PC.NURSE ---
Patient to have dialysis in room per Lenny ROBBINS.
--- NOTE | 2024-04-07 12:25 | ESPR_ITS ---
<Statement entered by Reggie Roldan MD - 04/07/24 15:36> Patient was seen and examined at the bedside. Patient's drug eruption/allergic hypersensitivity reaction appears to be similar however redness decreased mildly. Patient's allergic rash appears less diffuse. IV vancomycin was discontinued and started on doxycycline 100 mg twice daily. Patient received hemodialysis per schedule. Follow-up on blood cultures and MRSA screen. CT chest showed 9 mm pulmonary nodule right lower lobe therefore was advised to follow-up with CT chest in 6 months to evaluate pulmonary nodule size. Will continue with current antibiotics. Continue with Benadryl for itching. Lactic acidosis resolved. Calamine lotion added as needed. Will likely perform skin biopsy if patient's rash worsens tomorrow. Most likely attributed causes drug eruption and vasculitis appears to be less likely possibility given rash is blanchable and there was elevation in eosinophils yesterday. Currently symptomatic management and stopped offending agent. All labs and orders were reviewed. I saw and examined the patient, and I agree with current management stated by Dr Alonzo COYNE,PGY1. Plan of care was discussed with the attending physician and resident physician. Disclaimer: Despite multiple revisions, due to the dictation software being used, the document bellow may not be free of grammatical errors including phonetic/typographic errors. However, this does not deter from our commitment to providing health care in the patient's best interest in mind. Dr. Yuli MD, PGY 2 Documentation for date of: 04/07/24 Subjective Subjective Interval history: Patient examined at bedside today. Says that he use a Benadryl overnight and has helped with the itchiness of his rash. Still complaining of fatigue, weakness and itchiness of his rash. He says that he thinks that his rash is improved slightly. Exam Vital Signs Temp Pulse Resp BP Pulse Ox O2 Del Method 97.2 F 96 16 118/73 96 Room Air 04/07/24 12:00 04/07/24 12:15 04/07/24 12:00 04/07/24 12:15 04/07/24 12:00 04/07/24 12:00 Narrative Exam General: AAOx3, NAD, HEENT: Dry mucous membranes, conjunctiva clear, EOMI, PERRLA, Cardiovascular: S1, S2, radial pulses +2 bilat, RRR, catheter present on right side no signs of infection Pulmonary: no cough, some crackles GI: No tenderness to light or deep palpitation, no guarding, rigidity, rebound tenderness or distension, peritoneal catheter present, no signs of infection around site Extremities: No presence of trace or pitting edema in lower extremities bilaterally, dorsalis pedis pulses +2 bilaterally Skin:Diffuse erythematous rash in upper and lower extremities, abdomen, back, urticarial flat, nonpustular lesions throughout entire body, Neuro: AAOx3, no focal motor or sensory deficits in the UE or LE bilat Psych: Good judgement, thought and behavior. Cooperative Objective Labs 04/07/24 05:33 04/07/24 05:33 Labs: Laboratory Results - last 24 hr 04/06/24 04/06/24 04/07/24 12:45 15:08 05:33 WBC 10.7 H RBC 3.29 L Hgb 9.0 L Hct 28.4 L MCV 86 MCH 27.4 MCHC 31.7 RDW Std Deviation 55.5 H Plt Count 185 D Neut % (Auto) 82 H Lymph % (Auto) 8 L Hernando % (Auto) 5 Eos % (Auto) 4 Baso % (Auto) 0 Neut # (Auto) 8.8 H Lymph # (Auto) 0.9 L Hernando # (Auto) 0.6 Eos # (Auto) 0.4 Baso # (Auto) 0.0 Immature Gran # (Auto) 0.10 H Absolute Nucleated RBC 0.00 Immature Gran % 1 H Nucleated RBC % 0 PT 11.7 INR 1.1 APTT 29.6 Sodium 133 L Potassium 5.1 D Chloride 100 Carbon Dioxide 24.9 Anion Gap 8 BUN 53 H Creatinine 9.1 H* D Estim Creat Clear Calc 11.1 L eGFR 6 L* BUN/Creatinine Ratio 6 L Glucose 133 H Calculated Osmolality 282 Lactic Acid 2.0 Calcium 8.5 Corrected Calcium 8.9 Phosphorus 3.1 4.7 Magnesium 2.2 Total Bilirubin 0.3 AST 11 ALT 19 Alkaline Phosphatase 84 Total Protein 6.6 Albumin 3.5 Globulin 3.1 Albumin/Globulin Ratio 1.1 L Peritoneal Color Straw Peritoneal Appearance Cloudy Peritoneal WBC 1344 Peritoneal RBC 1000 Periton Polynucl WBCs 29 Periton Mononucl WBCs 71 Random Vancomycin 3.5 Quality Measures Quality Measures none Assessment & Plan Assessment Current Active Medications: Generic Name Dose Route Start Last Admin Trade Name Freq PRN Reason Stop Dose Admin Acetaminophen 650 mg 04/06/24 15:03 Acetaminophen 325 Mg Tablet PO 05/06/24 15:02 Q6H PRN Fever >101.5 Diphenhydramine HCl 25 mg 04/06/24 15:46 04/06/24 19:48 Diphenhydramine 25 Mg Capsule PO 05/06/24 15:59 25 mg QDAY PRN Administration itchiness Doxycycline Hyclate 100 mg 04/07/24 11:00 Doxycycline 100 Mg Tablet PO 04/14/24 10:59 BID RAFIA Epoetin Jesus 10,000 unit 04/07/24 13:00 Epoetin Jesus-Epbx Inj 10,000 Unit/Ml Vial (Esrd) SC 04/07/24 13:01 X1 ONE Piperacillin/Tazobactam/Dextrose 3.375 gm in 50 mls @ 12.5 mls/hr 04/07/24 21:00 Zosyn IV 04/14/24 20:59 Q12HR RAFIA Non-Formulary Medication 500 mg 04/07/24 08:00 04/07/24 07:58 Sucroferric Oxyhydroxide [Velphoro] PO 05/07/24 07:59 Not Given TIDWM RAFIA Ondansetron HCl 4 mg 04/06/24 15:03 Ondansetron Inj 2 Mg/Ml Inj 2 Ml IV 05/06/24 15:02 Q6H PRN NAUSEA OR VOMITING Protocol Pantoprazole Sodium 40 mg 04/07/24 09:00 04/07/24 08:00 Pantoprazole 40 Mg Tablet PO 05/07/24 08:59 40 mg QDAY RAFIA Administration Sevelamer Carbonate 800 mg 04/06/24 17:30 04/07/24 07:57 Sevelamer Carbonate 800 Mg Tablet PO 05/06/24 17:29 800 mg TIDWM RAFIA Administration Plan Assessment Mike Samayoa is a 58-year-old male with a past medical history of ESRD (Saturday, Dr. Early), FSGS, hypertension, GERD, GI bleed, and seasonal allergies who was admitted for sepsis and allergic reaction. #Sepsis, improving #? Cellulitis Source: Abdomen, skin, blood, or urine Patient's presenting with SIRS criteria (tachycardic), source at this time is unknown Lactate 4.0, no white count Patient is having diffuse erythematous rash, reported some tenderness on left chest Patient also has catheter on right side of chest for dialysis and also has peritoneal catheter, diffuse erythema in both locations Patient has been given 1 L bolus at this time, will limited as patient has history of ESRD and HFrEF Peritoneal catheter was put in recently, around March 19, has not been draining any purulent fluid at this time CT chest, abdomen, pelvis shows no signs of peritonitis, abscess Patient started to experience possible allergic reaction from Vanco, will continue doxycycline Suspicion for cellulitis, or infection at this time but will continue to treat Plan: ? Continuing Zosyn and doxycycline (04/06-) ? Follow-up MRSA nares ? Blood cultures NG1D ? Follow-up peritoneal culture #Erythematous rash #Tachycardia #Hypotension #Severe generalized weakness #History of seasonal allergies DDx: Hypersensitivity type IV versus type III, drug exanthem, vasculitis, infectious Etiology: Ciprofloxacin, new laundry detergent, new soap, other Patient has been reporting that he has been having a worsening rash throughout his upper and lower extremities, abdomen, back Says that he has used a new laundry detergent Also says that he recently finished a dose of ciprofloxacin, last taken on 03/26, no other medicines at this time Also says that he wiped his entire body with a new bacterial soap for peritoneal dialysis, but rash preceded that Was given Solu-Medrol 125, Pepcid 20, Benadryl 25 in the ED Reports that his rash is slightly improving, and has no alarming symptoms of anaphylaxis at this time Eosinophilia seen on CBC We will continue to workup Patient does see criminal justice faculty outpatient Could be related to hypersensitivity, and dialysis Fluid responsive, given 1 L bolus At this time, pt most likely is experiencing diffuse rash due to drug eruption Pt is still experiencing severe weakness, in which she need to take off work, and is having trouble feeding himself With eosinophilia seen on CBC today Vasculitis has been brought up on the differential, likely at this time Plan: ? Benadryl as needed ? Fluid restriction due to patient being CHF and ESRD ? Continue to monitor symptoms ? As above ? Avoid any Cipro and other medicines that patient is allergic to ? Continue to monitor for anaphylactic symptoms #Lactic acidosis, resolved Likely secondary to hypotension and/or erythematous rash In the ER, lactate was 4 Last lactate 2.0, will not need to follow-up Plan: ? Stable #History of ESRD Dr. Early hide shaker, Saturday Patient came from dialysis, removed 2.7 L today Does not use peritoneal catheter at this point Patient required emergent dialysis today, 1.8 L removed Plan: ? Resumed home sevelamer 800 3 times daily ? Monitor electrolytes and CMP ? Nephrology consult, appreciate recs ? Strict JACOBO's ? Continue with fluid restriction 1500 cc/day #History of HFrEF Recent echo in March 2024 shows normal LV, mild MR and TR and EF of 45 to 50% Plan: ? Holding home Lasix and GDMT therapy in setting of hypotension #Pulmonary nodule, [address] chest, right lower lobe Plan: ? Follow-up outpatient #History of hypertension Has metoprolol tartrate 50 Mg twice daily and amlodipine 10 Mg daily Plan: ? Holding antihypertensives in setting of hypotension #Normocytic anemia Likely secondary to ESRD Hemoglobin 9.0 today, 10 yesterday Plan: ? Monitor CBC ? Transfusion protocol below 7 for hemoglobin #Health Maintenance Disposition: Telemetry DVT prophylaxis: SCDs GI prophylaxis: Protonix Diet: Renal CODE STATUS: Full The patient's management plan was discussed with my attending physician Dr. Soto MD and my senior resident, Dr. Yuli Rosado, PGY-1 Attending Provider Attestation/Addendum I have examined the patient, reviewed labs and imaging findings, discussed the case with the resident(s), and reviewed entered orders. I agree with the plan of care as outlined in this note, with these additional summaries/recommendations: Patient seen at bedside receiving hemodialysis and tolerating well. Blood pressure currently stable. K 5.1 this morning and Nephrology Dr. Early following. Patients outpatient HD schedule is MW. Patient diagnosed with sepsis on admission with possible sources of cellulitis versus bacteremia versus urinary tract infection versus less likely bacterial peritonitis. Patient received 1 L fluid bolus but did not receive 30 cc/kg for history of ESRD. Patient receiving IV zosyn and IV vancomycin has been discontinued secondary to vancomycin flushing syndrome in the setting of preexisting diffuse rash. Doxycyline ordered. Blood cultures, peritoneal culture, and urine cultures pending, Follow-up results when available. Lactic acidosis and hypotension on admission has resolved. Patient was also found to have a relatively diffuse, erythematous, circumferential, raised, and warm to touch rash on chest, abdomen, upper and lower extremities on admission. Rash is nontender to touch. Etiology for rash remains unknown at this time but possible etiologies include delayed hypersensitivity reaction from recent ciprofloxacin, viral exanthema, contact dermatitis from new soap, versus least likely vasculitis. Patient does follow an criminal justice faculty for history of seasonal allergies. He denies any similar rash in the past except for remote history in childhood. Patient was given famotidine, Benadryl, and IV Solu-Medrol in the emergency department for possible allergy. We will monitor for improvement. If no improvement patient may require skin biopsy. Patient updated on the plan and in agreement. Repeat chemistry and hematology panel in AM. Dr. Valera
[2024-04-07] MEDS: EPOETIN ALFA-EPBX INJ 10,000 UNIT/ML VIAL (ESRD) 10000 UNIT SC (13:02)
--- NOTE | 2024-04-07 13:56 | PC.SS ---
SS met with patient regarding his d/c plan. Pt is alert/oriented. Pt was admitted for Hypotension. Pt confirmed demographic and contact information is correct on facesheet. Pt resides with . Pt ambulates independently without assistance or DME. Pt is ok with all ADLs. 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 Pt is an established dialysis pt with Dr. Early at [facility] Dialysis [facility] from 4-8am. Pt states he drives himself or provides transportation. Patient?s pharmacy of choice is [facility] on [address]. Pt named his , Shauna Flynn medical decision maker if she is unable. Patient?s choice is to return home upon d/c. Pt states he last followed up with PCP in December,. D/C plan: Return home Next of Kin: Shauna Flynn, , phone# [phone] PCP: Dr. Lore Castañeda from [facility] Address: Correct on facesheet
[2024-04-07] MEDS: DOXYCYCLINE 100 MG TABLET PO ×2 (14:02→21:02)
--- NOTE | 2024-04-07 14:20 | PC.NURSE ---
Dialysis completed for 3 hrs. Respiration even and unlabored. Saturating at 96% RA. Able to removed 1800 ml of fluid net. Post tx BP 112/70, HR 94, Temp 97.2. Call light within reached. Report given to Loren ROBBINS
[2024-04-07] MEDS: Calamine Lotion 120 ML BTL TOP (18:08)
[2024-04-07] MEDS: predniSONE 20 MG TABLET PO (18:53)
--- NOTE | 2024-04-07 22:21 | ESCONSULT_ITS ---
HPI Data of Consult Requesting Physician: Josh Valera MD Admitting Provider: Josh Valera MD Attending Provider: Josh Valera MD Primary Care Provider: Lore Castañeda MD Consult Narrative History of present illness: Mr. Samayoa is a 58-year-old male with past medical history of end-stage renal disease on hemodialysis M, W, F, previous history of GI bleed, GERD, hypertension, seasonal allergies, presented to the ED with hypotension and Pruritic rash all over his body that began when he completed his antibiotics. He believes he is allergic to ciprofloxacin which he was taking for 5 days. He noticed pruritic rash on his back which transitioned to chest and then to his lower and upper extremities. Pt. states he took benadryl at home and had a minimal relief. Pt denies shortness of breath, fever or sick contacts. Pt. states his Hemoglobin is always very low and he has been having to leave work because of extreme fatigue due to his anemia. Pt also states that he still produces urine however he has not for the last 3 days. But he does endorse a few drops of blood and he is still feeling discomfort. Patient had peritoneal dialysis catheter placed on February 19, 2024, which has not been used, although he has completed one training session. Pt. completed dialysis session yesterday (Sat) and 2.7 L fluid was removed, however the dialysis was stopped early due to hypotension. Today Pt. received another session of dialysis removing additional 1.8L of fluid. Patient denies abdominal pain, chest pain, Nausea or vomiting. cc:: cc: Josh Valera MD Review of Systems Review of Systems Systems Reviewed: All systems reviewed, normal except as documented Exam Vital Signs Temp Pulse Resp BP Pulse Ox O2 Del Method 98.0 F 79 18 119/70 99 Room Air 04/07/24 20:00 04/07/24 21:37 04/07/24 20:00 04/07/24 20:00 04/07/24 20:00 04/07/24 20:00 Narrative Exam GENERAL: A&Ox3 . Awake, Not in acute distress NEURO: anesthesiology technologist grossly intact, moves extremities x4 HEENT: Atraumatic, Normocephalic. mucous membranes moist. Eyes open, symmetrical, & clear HEART: Normal Heart Sounds LUNGS: Clear to auscultation with no wheezing or crackles. ABDOMEN: soft, non-distended, non-tender, bowel sounds heard, no guarding or rebound tenderness SKIN: diffuse erythematous Rash on chest, abdomen, upper and lower extremities, spares palm and soles EXTREMITIES: No edema, tenderness, able to move all 4 extremities, pedal pulses palpated Results Labs 04/08/24 04:41 04/08/24 04:41 Labs: Short CBC 04/07/24 Range/Units 05:33 WBC 10.7 H (3.8-10.6) Thou/mm3 Hgb 9.0 L (13.5-16.0) g/dL Hct 28.4 L (41.0-53.0) % Plt Count 185 D (140-440) Thou/mm3 BMP 04/07/24 05:33 Sodium 133 L Potassium 5.1 D Chloride 100 Carbon Dioxide 24.9 BUN 53 H Creatinine 9.1 H* D Glucose 133 H Calcium 8.5 Liver Function 04/07/24 Range/Units 05:33 Total Bilirubin 0.3 (0.3-1.2) mg/dL AST 11 (0-34) U/L ALT 19 (10-49) U/L Alkaline Phosphatase 84 (46-116) U/L Albumin 3.5 (3.5-5.0) gm/dL Quality Measures Quality Measures none Medications Home Medications and Allergies Home Medications ?Medication ?Instructions ?Recorded ?Confirmed ?Type cetirizine 10 mg tablet 10 mg PO QDAY 10/07/23 04/06/24 History sucroferric oxyhydroxide 500 mg 500 mg PO TIDWM 04/06/24 04/06/24 History chewable tablet (Velphoro) Allergies Allergy/AdvReac Type Severity Reaction Status Date / Time vancomycin Allergy Intermediate Rash Unverified 04/08/24 09:11 ciprofloxacin [From Cipro] Allergy Rash Verified 04/06/24 10:45 Visit Medications Acetaminophen (Acetaminophen 325 Mg Tablet) 650 mg PO Q6H PRN PRN Reason: Fever >101.5 Stop: 05/06/24 15:02 Calamine (Calamine Lotion 120 Ml Btl) 0 ml TOP UD PRN PRN Reason: ITCHING Stop: 05/07/24 15:01 Last Admin: 04/07/24 18:08 Dose: 1 applicatio Diphenhydramine HCl (Diphenhydramine 25 Mg Capsule) 25 mg PO QDAY PRN PRN Reason: itchiness Stop: 05/06/24 15:59 Last Admin: 04/06/24 19:48 Dose: 25 mg Doxycycline Hyclate (Doxycycline 100 Mg Tablet) 100 mg PO BID [facility] Stop: 04/14/24 10:59 Last Admin: 04/07/24 21:02 Dose: 100 mg Heparin Sodium (Porcine) (Heparin Sod Inj 1000 Unit/Ml Vial 10 Ml) 3,500 unit INDWELLCAT X1 PRN PRN Reason: DIALYSIS Stop: 04/21/24 12:22 Piperacillin/Tazobactam/Dextrose (Zosyn) 3.375 gm in 50 mls @ 12.5 mls/hr IV Q12HR [facility] Stop: 04/14/24 20:59 Last Admin: 04/07/24 21:02 Dose: 12.5 mls/hr Non-Formulary Medication (Sucroferric Oxyhydroxide [Velphoro]) 500 mg PO TIDWM [facility] Stop: 05/07/24 07:59 Last Admin: 04/07/24 17:50 Dose: Not Given Ondansetron HCl (Ondansetron Inj 2 Mg/Ml Inj 2 Ml) 4 mg IV Q6H PRN; Protocol PRN Reason: NAUSEA OR VOMITING Stop: 05/06/24 15:02 Pantoprazole Sodium (Pantoprazole 40 Mg Tablet) 40 mg PO QDAY [facility] Stop: 05/07/24 08:59 Last Admin: 04/07/24 08:00 Dose: 40 mg Prednisone (Prednisone 20 Mg Tablet) 20 mg PO QDAY [facility] Stop: 05/07/24 18:29 Last Admin: 04/07/24 18:53 Dose: 20 mg Sevelamer Carbonate (Sevelamer Carbonate 800 Mg Tablet) 800 mg PO TIDWM [facility] Stop: 05/06/24 17:29 Last Admin: 04/07/24 17:50 Dose: 800 mg Discontinued Medications Diphenhydramine HCl (Diphenhydramine Inj 50 Mg/Ml Vial) 25 mg IVP X1 ONE Stop: 04/06/24 11:16 Last Admin: 04/06/24 11:25 Dose: 25 mg Epoetin Jesus (Epoetin Jesus-Epbx Inj 10,000 Unit/Ml Vial (Esrd)) 10,000 unit SC X1 ONE Stop: 04/07/24 13:01 Last Admin: 04/07/24 13:02 Dose: 10,000 unit Famotidine (Famotidine Inj 10 Mg/Ml Vial 2 Ml) 20 mg IVP X1 ONE Stop: 04/06/24 11:16 Last Admin: 04/06/24 11:25 Dose: 20 mg Fentanyl Citrate (Fentanyl Cit Inj 50 Mcg/Ml Amp 2ml) 50 mcg IVP X1 ONE Stop: 04/06/24 11:16 Last Admin: 04/06/24 11:24 Dose: 50 mcg Hydromorphone HCl (Hydromorphone Inj 2 Mg/Ml Vial) 0.5 mg IVP X1 ONE Stop: 04/06/24 14:58 Last Admin: 04/06/24 15:41 Dose: 0.5 mg Sodium Chloride (Ns) 250 mls @ 999 mls/hr IV .Q16M ONE Stop: 04/06/24 11:20 Last Infusion: 04/06/24 11:45 Dose: Infused Sodium Chloride (Ns) 250 mls @ 999 mls/hr IV .Q16M ONE Stop: 04/06/24 11:44 Last Infusion: 04/06/24 12:20 Dose: Infused Vancomycin HCl 1,000 mg/ (Sodium Chloride) 250 mls @ 250 mls/hr IV X1 ONE Stop: 04/06/24 12:57 Last Infusion: 04/06/24 14:56 Dose: 0 mls/hr Piperacillin/Tazobactam/Dextrose (Zosyn) 3.375 gm in 50 mls @ 100 mls/hr IV X1 ONE Stop: 04/06/24 12:27 Last Infusion: 04/06/24 14:25 Dose: Infused Sodium Chloride (Ns) 500 mls @ 999 mls/hr IV .Q31M ONE Stop: 04/06/24 12:46 Last Infusion: 04/06/24 13:00 Dose: Infused Piperacillin/Tazobactam/Dextrose (Zosyn) 3.375 gm in 50 mls @ 100 mls/hr IV Q8HR RAFIA Stop: 04/13/24 15:21 Last Admin: 04/07/24 05:21 Dose: 100 mls/hr Lidocaine HCl (Lidocaine Inj 2% 20 Mg/Ml Syringe 5 Ml) 100 mg IV X1 ONE Stop: 04/06/24 12:17 Last Admin: 04/06/24 13:21 Dose: Not Given Lidocaine HCl (Lidocaine Jelly 2% (Urojet) 10 Ml Tube) 0 ml TOP X1 ONE Stop: 04/06/24 12:22 Last Admin: 04/06/24 12:12 Dose: 10 ml Methylprednisolone Sodium Succinate (Methylprednisolone Sod Succ 62.5 Mg/Ml 2ml Vial) 125 mg IVP X1 ONE Stop: 04/06/24 11:17 Last Admin: 04/06/24 11:25 Dose: 125 mg Pharmacy Consult (Pharmacy To Dose Vancomycin) 1 each IV QDAY PRN PRN Reason: PROTOCOL Stop: 05/07/24 08:59 Assessment & Plan Plan Mr. Samayoa is a 58-year-old male with past medical history of end-stage renal disease on hemodialysis M, W, F, previous history of GI bleed, GERD, hypertension, seasonal allergies, presented to the ED with Pruritic rash all over his body that began when he completed his antibiotics. End Stage Renal Disease -ESRD 2/2 chronic and severe scarring and fibrosis. 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 Patient may continue his regular outpatient hemodialysis schedule while hospitalized. Will reevaluate patient in am if additional HD session is needed vs dialysis holiday. Once medically cleared for discharge follow-up in nephrology clinic within two weeks. Other Problems #erythematous rash #Paroxysmal A-fib #Community acquired pneumonia #Acute GI bleed #History of hypertension #History of back pain Plan ? Follow-up with the primary care recommendations. Patient's plan and care discussed with my attending, Dr. Early, Kelby Valverde MD Internal Medicine PGY-1 Attending Provider Attestation/Addendum Pt seen and examined. Plan to do HD tomorrow. agree with assessment and plan Eyal Early MD
[2024-04-07] MEDS: LIDOCAINE 5% 1 PATCH TOP (23:18)
[2024-04-07] MEDS: DiphenhydrAMINE 25 MG CAPSULE PO (23:19)
[2024-04-08] VITALS (19 sets, daily range): BP systolic 109–149; BP diastolic 57–87; PULSE 68–92; RESP 18–98; TEMP 36.1–37; O2SAT 95–98
[2024-04-08 05:40] LABS: Basophils % (Auto) 0 % (0-2.5); Eosinophils % (Auto) 11 % (0-10); Hematocrit 28.1 % (41.0-53.0); Immature Granulocytes % (Auto) 2 % (0-0); Immature Granulocytes Auto 0.21 Thou/mm3 (0.00-0.00); Lymphocytes # (Auto) 1.2 Thou/mm3 (1.0-4.8); Lymphocytes % (Auto) 12 % (10-50); Mean Corpuscular Hemoglobin 28.4 pg (25.0-35.0); Mean Corpuscular Volume 89 fL (80-100); Monocytes # (Auto) 0.4 Thou/mm3 (0.0-0.8); Monocytes % (Auto) 4 % (0-12); Neutrophils # (Auto) 6.9 Thou/mm3 (1.8-7.7); Neutrophils % (Auto) 71 % (37-80); Nucleated Red Blood Cell % 0 /100 WBC (0); Platelet Count 183 Thou/mm3 (140-440); RDW Standard Deviation 57.1 fL (35.1-43.9); Red Blood Count 3.17 Miln/mm3 (4.50-5.90); White Blood Count 9.8 Thou/mm3 (3.8-10.6)
[2024-04-08 06:16] LABS: Alanine Aminotransferase 17 U/L (10-49); Albumin, Serum 3.4 gm/dL (3.5-5.0); Albumin/Globulin Ratio 1.1 (1.2-2.2); Alkaline Phosphatase 81 U/L (46-116); Anion Gap 8 (7-16); Aspartate Amino Transferase 10 U/L (0-34); BUN/Creatinine Ratio 6 Ratio (12-20); Bilirubin,Total 0.2 mg/dL (0.3-1.2); Blood Urea Nitrogen 50 mg/dL (9-23); Calcium (Corrected) 8.5 mg/dL (8.5-10.1); Carbon Dioxide 24.7 mMol/L (20.0-31.0); Chloride 102 mMol/L (98-107); Creatinine (Component) 8.1 mg/dL (0.6-1.3); Estimated Creatinine Clearance 12.6 mL/min (>60); Globulin 3.1 gm/dL (2.3-3.5); Glucose 163 mg/dL (74-106); Magnesium 2.1 mg/dL (1.6-2.6); Osmolality,Calculated 287 (275-295); Phosphorous 4.3 mg/dL (2.4-5.1); Potassium 4.9 mMol/L (3.4-5.1); Sodium 135 mMol/L (136-145); Total Protein 6.5 gm/dL (5.7-8.2); eGFR 7 See Note
[2024-04-08] MEDS: SEVELAMER CARBONATE 800 MG TABLET PO (12:30)
--- NOTE | 2024-04-08 14:25 | ESDS_ITS ---
<Statement entered by Reggie Roldan MD - 04/08/24 14:56> Patient was seen and examined at the bedside. Patient reported that his drug eruption rash has markedly improved mild itching still present. He was explained that his blood cultures have been negative so far and no fever spikes or elevation white count reported today. Patient is medically stable to be discharged today. He was given tapering dose of steroids, calamine lotion and diphenhydramine as needed for itching for drug rash. 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 Home medications were optimized. All labs and orders were reviewed. I saw and examined the patient, and I agree with current management stated by Dr Alonzo COYNE ,PGY1. Plan of care was discussed with the attending physician and resident physician. Disclaimer: Despite multiple revisions, due to the dictation software being used, the document bellow may not be free of grammatical errors including phonetic/typographic errors. However, this does not deter from our commitment to providing health care in the patient's best interest in mind. Dr. Celestine MD, PGY 2 Planned Discharge Date 04/08/24 DS: Providers Provider Date of admission: 04/06/24 15:03 Primary care physician: Lore Castañeda MD Admitting Provider: Josh Valera MD Attending Provider on Admission: Anthony Jade MD Consults: 04/06/24 15:10 Consult to Nephrology Routine Comment: Consulting Provider: Eyal Early Attending Provider on DC: Anthony Jade MD Discharging Provider: Anthony Jade MD DS: Diagnosis Problem List Completed Was Problem List Reviewed/Reconciled?: Yes Hospital Course Hospital Course Hospital course: Mike is a 58-year-old male with a past medical history of ESRD (Saturday, Dr. Early), FSGS, hypertension, GERD, GI bleed, and seasonal allergies who was admitted on April 06, 2024 for likely drug eruption related rash after taking a course of Cipro, last dose on March 26, 2024 (as he was recently discharged from [facility] [place] on March 18, 2024). Patient had initially come to the ED after dialysis session (2.6 L removed) for evaluation of weakness, hypotension, lower back pain, chest pressure and skin rash. He arrived to the ED with tachycardia (105). He was worked up and was found to have hemoglobin 10.9, lactate of 4, glucose of 172, Pro-Tommie 0.64, BUN/creatinine of 36 and 7 respectively. He was given Pepcid 20, Solu-Medrol 125, Benadryl 25 for his rash, and was also given a lidocaine patch for his back pain, fentanyl 50 mcg x1 and 1 dose of Zosyn. He was also given 1 L of fluid. Medicine was consulted and patient was admitted to the floors. While the patient was on the floors, patient had dialysis sessions as well. Patient was given Benadryl and calamine ointment to help itchiness of rash which she had endorsed that he improved relieving the symptoms. With the timing of the rash as it was diffuse, in the upper, lower extremities including the abdomen and the back, nonpustular, flat, resembling utricaria at times and blanchable and then becoming nonblanchable, pt most likely experienced a drug eruption/exanthem from Cipro. Throughout the day to the hospital, patient's redness and appearance of rash had improved. Patient was also started on prednisone 20 mg in which she will finish the course upon discharge. Also while in the ED, he was given a dose of vancomycin which he started further redness severe and was documented that he is allergic to vancomycin. Patient was sugges delbert to recommend to follow-up with [facility] in 1 week to monitor rash. Patient was also recommended to follow-up with nephrology recommendations and his PCP. Patient will need to do a follow-up CT for pulmonary nodule found, 5 mm right lower lobe. Take all home meds as prescribed Take Prednsione 20 mg for 3 more days to complete course Use calamine lotion and benadryl for itching for atleast a week until rash improves Patient needs to follow up with PCP for referral to [employer] if skin rash worsens and skin biopsy needed Patient will need to do follow-up CT for pulmonary nodule found the right lower lobe of the lung in 6 months Follow up with Nephrology,Dr Early as outpatient In case of emergency Call 911 or come back to ED #Drug exanthem related rash #Sepsis #Erythematous rash #Tachycardia #Hypotension #Severe generalized weakness #History of seasonal allergies #Lactic acidosis, resolved #History of ESRD #History of HFrEF #Pulmonary nodule, 5 mm #History of hypertension #Normocytic anemia Patient seen and care discussed with my senior resident, Dr. Roldan , and my attending physician, Dr. Kalie Rosado, PGY-1 Time Spent with Patient Time attestation: Total time spent providing and/or coordinating discharge services: Time spent: Greater than 30 minutes Exam Vital Signs Temp Pulse Resp BP Pulse Ox O2 Del Method 97.8 F 68 18 131/84 H 97 Room Air 04/08/24 12:15 04/08/24 12:15 04/08/24 12:15 04/08/24 12:15 04/08/24 12:15 04/08/24 08:00 Narrative Exam General: AAOx3, NAD, HEENT: Dry mucous membranes, conjunctiva clear, EOMI, PERRLA, Cardiovascular: S1, S2, radial pulses +2 bilat, RRR, catheter present on right side no signs of infection Pulmonary: no cough, some crackles GI: No tenderness to light or deep palpitation, no guarding, rigidity, rebound tenderness or distension, peritoneal catheter present, no signs of infection around site Extremities: No presence of trace or pitting edema in lower extremities bilaterally, dorsalis pedis pulses +2 bilaterally Skin:Diffuse erythematous rash in upper and lower extremities, abdomen, back, nonblanchable flat, nonpustular lesions throughout entire body, Neuro: AAOx3, no focal motor or sensory deficits in the UE or LE bilat Psych: Good judgement, thought and behavior. Cooperative Discharge Plan Plan Patient Disposition: HOME (Self Care) Care Plan Goals: Take all home meds as prescribed Take Prednsione 20 mg for 3 more days to complete course Use calamine lotion and benadryl for itching for atleast a week until rash improves Patient needs to follow up with PCP for referral to [facility] [employer] if skin rash worsens and skin biopsy needed Follow up with Nephrology,Dr Early as outpatient In case of emergency Call 911 or come back to ED Prescriptions/Referrals Prescriptions/Med Rec: New calamine-zinc oxide 8-8 % Lotion 1 applic top UD PRN (Reason: Itching) Qty: 177 0RF metoprolol tartrate 25 mg tablet 12.5 mg PO BID 30 Days Qty: 30 0RF diphenhydramine HCl [Benadryl] 25 mg capsule 25 mg PO BID Qty: 20 0RF furosemide [Lasix] 20 mg tablet 20 mg PO BID Qty: 30 0RF Continued cetirizine 10 mg Tablet 10 mg PO QDAY lidocaine [DermacinRx Lidocan] 5 % adhesive patch,medicated 1 patch topical QDAY 30 Days Qty: 30 6RF Rx Instructions: leave on most painful area for up to 12 hrs pantoprazole 40 mg tablet,delayed release (DR/EC) 40 mg PO QDAY Qty: 60 0RF Velphoro 500 mg tablet,chewable 500 mg PO TIDWM sevelamer carbonate 800 mg Tablet 2,400 mg PO TIDWM 30 Days Qty: 270 0RF Changed amlodipine 5 mg tablet 5 mg PO QDAY Qty: 30 0RF Patient Comments: TAKE 1 TABLET BY MOUTH TWICE A DAY Rx Instructions: Hold if BP below 110/80 Give on //Sat/Sun Discontinued furosemide 40 mg Tablet 40 mg PO BID metoprolol tartrate 50 mg tablet 50 mg PO BID Patient Comments: TAKE 1 TABLET BY MOUTH TWICE A DAY FOR 1 MONTH Referrals: Eyal Early MD [Physician] - Lore Castañeda MD [Primary Care Provider] - Patient/Caregiver Discharge Instructions Education Materials: Peritoneal Dialysis (PD), ED Low Blood Pressure, All Causes Print Language: [place] Citizen Stand Alone Forms: Brittany Award Info., Patient Portal Info Letter Discharge Order Discharge Orders: Discharge (Routine); Ordered 04/08/24 Ordered By: Martin Rosado Quality Discharge Quality Measures VTE prophylaxis (SCD) Attestestation MD Attestation Face to face evaluation was performed by me. I have personally seen and examined the patient. I discussed the assessment and plan with the entire medicine team. I reviewed available medical records, imaging studies, laboratory results. I agree with the above subjective data, objective findings, assessment and plan except as corrected by me or noted below ESRD on HD Generalized rash, suspect drug induced allergic reaction SIRS on admission, do not suspect true sepsis and infectious etiology stop Abxs and dc home after HD session, prescribe 3 more days of systemic steroids, pt to fu wit hPCP after dc
--- NOTE | 2024-04-08 14:47 | PC.NURSE ---
Patient discharged at 1415, waiting on for transport.
--- NOTE | 2024-04-08 21:14 | PD.RESPRO ---
Documentation for date of: 04/08/24 Subjective Subjective Interval history: Patient seen at bedside. No acute overnight events. Patient has no new symptoms to report today. He is tolerating hemodialysis well. Discussed with patient that he is medically cleared from a nephrology standpoint. Continue outpatient hemodialysis schedule and follow-up in nephrology clinic within 2 weeks. Exam Vital Signs Temp Pulse Resp BP Pulse Ox O2 Del Method 97.8 F 68 18 131/84 H 97 Room Air 04/08/24 12:15 04/08/24 12:15 04/08/24 12:15 04/08/24 12:15 04/08/24 12:15 04/08/24 08:00 Narrative Exam GENERAL: A&Ox3 . 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 mucous membranes moist. Eyes open, symmetrical, & clear HEART: Normal Heart Sounds LUNGS: Clear to auscultation with no wheezing or crackles. ABDOMEN: soft, non-distended, non-tender, bowel sounds heard, no guarding or rebound tenderness SKIN: diffuse erythematous Rash on chest, abdomen, upper and lower extremities, spares palm and soles EXTREMITIES: No edema, tenderness, able to move all 4 extremities, pedal pulses palpated Objective Labs 04/08/24 04:41 04/08/24 04:41 Labs: Laboratory Results - last 24 hr 04/08/24 04:41 WBC 9.8 RBC 3.17 L Hgb 9.0 L Hct 28.1 L MCV 89 MCH 28.4 MCHC 32.0 RDW Std Deviation 57.1 H Plt Count 183 Neut % (Auto) 71 Lymph % (Auto) 12 [place] % (Auto) 4 Eos % (Auto) 11 H Baso % (Auto) 0 Neut # (Auto) 6.9 Lymph # (Auto) 1.2 Linn # (Auto) 0.4 Eos # (Auto) 1.0 H Baso # (Auto) 0.0 Immature Gran # (Auto) 0.21 H Absolute Nucleated RBC 0.00 Immature Gran % 2 H Nucleated RBC % 0 Sodium 135 L Potassium 4.9 Chloride 102 Carbon Dioxide 24.7 Anion Gap 8 BUN 50 H Creatinine 8.1 H* D Estim Creat Clear Calc 12.6 L eGFR 7 L* BUN/Creatinine Ratio 6 L Glucose 163 H Calculated Osmolality 287 Calcium 8.0 L Corrected Calcium 8.5 Phosphorus 4.3 Magnesium 2.1 Total Bilirubin 0.2 L AST 10 ALT 17 Alkaline Phosphatase 81 Total Protein 6.5 Albumin 3.4 L Globulin 3.1 Albumin/Globulin Ratio 1.1 L Quality Measures Quality Measures VTE prophylaxis (SCD) Assessment & Plan Assessment Current Active Medications: Generic Name Dose Route Start Last Admin Trade Name Freq PRN Reason Stop Dose Admin Acetaminophen 650 mg 03/15/24 16:25 03/18/24 09:29 Acetaminophen 325 Mg Tablet PO 04/14/24 16:24 650 mg Q6H PRN Administration PAIN SCALE 1-3 (mild Acetaminophen 650 mg 03/16/24 10:53 Acetaminophen 325 Mg Tablet PO 04/14/24 16:24 Q6HR PRN Fever >100.3 Hydrocodone Bitart/Acetaminophen 1 tab 03/17/24 11:02 03/17/24 11:12 Hydrocodone/Apap 5/325 Tablet PO 03/22/24 11:01 1 tab Q8HR PRN Administration Pain 7-10 Albuterol/Ipratropium 3 ml 03/15/24 16:25 03/17/24 20:33 Albuterol/Ipratropium (Duoneb) Rt Alem 3 Ml Nebu INH 04/14/24 18:59 3 ml Q4HRRT PRN Administration Wheeze or SOB Amlodipine Besylate 10 mg 03/18/24 09:00 03/18/24 11:54 Amlodipine Besylate 5 Mg Tablet PO 04/17/24 08:59 10 mg QDAY RAFIA Administration Heparin Sodium (Porcine) 5,000 unit 03/15/24 16:30 03/18/24 05:23 Heparin Sod Inj 5000 Unit/Ml Vial SC 03/29/24 16:29 5,000 unit Q12H RAFIA Administration Heparin Sodium (Porcine) 3,500 unit 03/15/24 20:32 03/18/24 11:18 Heparin Sod Inj 1000 Unit/Ml Vial 10 Ml INDWELLCAT 03/29/24 20:31 3,500 unit X1 PRN Administration DIALYSIS Albumin Human 25 gm in 100 mls @ 100 mls/min 03/15/24 20:32 Albuminar-25 Ivpb IV 03/18/24 20:31 PRN PRN DIALYSIS Ceftriaxone Sodium/Dextrose 50 mls @ 100 mls/hr 03/17/24 09:00 03/18/24 11:37 Rocephin/D5w 1gm Iv Premix IV 03/24/24 08:59 100 mls/hr QDAY RAFIA Administration Lorazepam 0.25 mg 03/15/24 17:35 03/16/24 23:52 Lorazepam 2 Mg/Ml Vial IVP 03/20/24 17:44 0.25 mg Q6H PRN Administration anxiety Losartan Potassium 50 mg 03/18/24 09:15 03/18/24 11:54 Losartan Potassium 25 Mg Tablet PO 04/17/24 09:14 50 mg QDAY RAFIA Administration Metoprolol Tartrate 50 mg 03/15/24 21:00 03/18/24 11:54 Metoprolol Tartrate 25 Mg Tablet PO 04/14/24 20:59 50 mg BID RAFIA Administration Montelukast Sodium 10 mg 03/16/24 09:00 03/18/24 11:39 Montelukast Sodium 10 Mg Tablet PO 04/15/24 08:59 10 mg QDAY RAFIA Administration Ondansetron HCl 4 mg 03/15/24 16:25 Ondansetron Inj 2 Mg/Ml Inj 2 Ml IV 04/14/24 16:24 Q6H PRN NAUSEA OR VOMITING Protocol Pantoprazole Sodium 40 mg 03/18/24 09:00 03/18/24 11:38 Pantoprazole 40 Mg Tablet PO 04/17/24 08:59 40 mg QDAY RAFIA Administration Sevelamer Carbonate 2,400 mg 03/15/24 17:30 03/18/24 11:37 Sevelamer Carbonate 800 Mg Tablet PO 04/14/24 17:29 2,400 mg TIDWM RAFIA Administration Plan Mr. Samayoa is a 58-year-old male with past medical history of end-stage renal disease on hemodialysis M, W, F, previous history of GI bleed, GERD, hypertension, seasonal allergies, presented to the ED with severe shortness of breath that started Saturday morning. Patient was found to be fluid overload and nephrology team consulted. 1. Acute Hypoxic Respiratory Failure 2. Fluid Overload 3. End Stage Renal Disease -ESRD 2/2 chronic and severe scarring and fibrosis. 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 is cleared for discharged from nephrology stand point. Follow-up in nephrology clinic in 2 weeks. Resume outpatient dialysis schedule (MWF) Continue to take medications as prescribed Counciled on avoiding excessive fluid intake Avoid nephrotoxic drugs and renally dose medications Chronic Problems #Paroxysmal A-fib #Community acquired pneumonia #Acute GI bleed #History of hypertension #History of back pain Plan ? Follow-up with the primary care recommendations. Patient's plan and care discussed with my attending, Dr. Early, Kelby Valverde MD Internal Medicine PGY-1 Thank you for allowing us to participate in this patients care. Nephrology will continue to follow the patient. Attending Provider Attestation/Addendum Pt is seen and examined. Notes by resident are reviewed. Agree with assment and plan. Eyal Early MD
== END 2024-04-08 15:34 | disposition home or self-care (01) | DRG 606 ==
LOC: SERX 13:45 → SERHOLD 15:21 → S3NX 17:43
PROVIDERS: Student in an Organized Health Care Education/Training Program; Admitting Provider Student in an Organized Health Care Education/Training Program; Emergency Provider Emergency Medicine; PCP Family Medicine; Visit Provider Internal Medicine
DX: L27.0 Generalized skin eruption due to drugs and medicaments taken internally (principal); N18.6 End stage renal disease; E87.20 Acidosis, unspecified; I13.2 Hypertensive heart and chronic kidney disease with heart failure and with stage 5 chronic kidney disease, or end stage renal disease; I50.22 Chronic systolic (congestive) heart failure; R65.10 Systemic inflammatory response syndrome (SIRS) of non-infectious origin without acute organ dysfunction; I95.3 Hypotension of hemodialysis; T36.8X5A Adverse effect of other systemic antibiotics, initial encounter; D72.10 Eosinophilia, unspecified; J30.2 Other seasonal allergic rhinitis; K21.9 Gastro-esophageal reflux disease without esophagitis; D63.1 Anemia in chronic kidney disease; R91.1 Solitary pulmonary nodule; I48.0 Paroxysmal atrial fibrillation; M54.50 Low back pain, unspecified; G89.29 Other chronic pain; Z99.2 Dependence on renal dialysis; Z88.1 Allergy status to other antibiotic agents
CPT/HCPCS: 36415; 71045; 71250; 74176; 80053; 80202; 81001; 83605; 83690; 83735; 83880; 84100; 84145; 84484; 85025; 85610; 85730; 87040; 87070; 87075; 87081; 87086; 87205; 89051; 93005; 96361; 96365; 96367; 96375; 99291; J1200; J2543; J2919; J3010; J3371; J3490; J7040; J7050; J7512; Q5105; A9270; J3370

== ENCOUNTER 2024-06-15 23:56 | Observation (INO) | payer OTHER, MEDICAID, SELFPAY ==
[2024-06-15 23:59] VITALS: BP 178/85; PULSE 86; RESP 26; TEMP 36.4; O2SAT 95; BMI 28.5
[2024-06-16] VITALS (36 sets, daily range): BP systolic 112–168; BP diastolic 72–106; PULSE 61–94; RESP 14–31; TEMP 36.6–37.1; O2SAT 92–100; BMI 28.5
--- NOTE | 2024-06-16 00:08 | PD.EDSOB ---
ED SOB =RME/HPI General Chief Complaint: Shortness of Breath/Dyspnea Stated Complaint: SOB Time Seen by Provider: 06/16/24 00:04 Arrival date/time: 06/15/24 23:56 RME / HPI RME / HPI Narrative: Dr. Mcqueen?s Main ED Evaluation: 58yo male with pmhx ESRD on dialysis (M/W/F), HTN presents to the ED for a chief complaint of shortness of breath. Patient states he had a new dialysis catheter placed in his left chest wall yesterday and missed dialysis, and now feels short of breath, so he came in for evaluation. He denies any chest pain, fever, chills or any other associated symptoms. Patient does still urinate. Related Data Home Medications ?Medication ?Instructions ?Recorded ?Confirmed cetirizine 10 mg tablet 10 mg PO QDAY 10/07/23 04/06/24 sucroferric oxyhydroxide 500 mg 500 mg PO TIDWM 04/06/24 04/06/24 chewable tablet (Velphoro) Previous Rx's ?Medication ?Instructions ?Recorded lidocaine 5 % topical patch 1 patch topical QDAY back pain 1 10/11/23 (DermacinRx Lidocan) month #30 ea pantoprazole 40 mg tablet,delayed 40 mg PO QDAY #60 tabs 10/14/23 release amlodipine 5 mg tablet 5 mg PO QDAY #30 tabs 04/08/24 calamine 8 %-zinc oxide 8 % lotion 1 applic top UD PRN Itching #177 mL 04/08/24 diphenhydramine HCl 25 mg capsule 25 mg PO BID #20 caps 04/08/24 (Benadryl) furosemide 20 mg tablet (Lasix) 20 mg PO BID #30 tabs 04/08/24 Allergies Allergy/AdvReac Type Severity Reaction Status Date / Time vancomycin Allergy Intermediate Rash Unverified 04/08/24 09:11 ciprofloxacin [From Cipro] Allergy Rash Verified 04/06/24 10:45 Review of Systems Review of Systems Systems Reviewed: All systems reviewed, normal except as documented Narrative Review of Systems: Gen: No fever, no chills, no weight loss EYES: No discharge, no visual changes, no pain HEENT: No ear pain, no congestion, no sore throat PULM: + shortness of breath, no cough, no congestion CV: No chest pain, no dyspnea on exertion, no palpitations GI: No nausea, no vomiting, no diarrhea, no pain, no constipation : No frequency, no urgency, no dysuria Musc/skel: No joint pain, no back pain Skin: No rash. Warm and dry. Psyc: No hallucinations, no depression Heme/Lymph: No easy bleeding or bruising tendencies Neuro: No weakness, no headache Past Medical History Past Medical History NEUROLOGIC: Negative Neurological Disorders or Seizures CARDIAC: Positive Cardiac Disorders, Cardiac Arrhythmia and Hypertension; Negative Congestive Heart Failure RESPIRATORY: Positive Pneumonia; Negative Chronic Obstructive Pulmonary Disease (COPD), Asthma or Bronchitis GASTROINTESTINAL: Positive Gastrointestinal Disorders, Gastrointestinal Bleed, Ulcer, Hemorrhoids and Obesity GENITOURINARY: Positive Genitourinary Disorders, Renal Disease and Dialysis MUSCULOSKELETAL: Negative Musculoskeletal Disorders ENDOCRINE: Negative Endocrine Disorders, Diabetes Mellitus Type 1 or Diabetes Mellitus Type 2 HEMATOLOGIC: Positive Blood Disorders and Anemia PSYCHO/SOCIAL: Positive Anxiety OTHER HISTORY: Positive Hospitalization, Blood Transfusions, Chicken Pox, Measles and Mumps; Negative Autoimmune Disease, Shingles, Falls, Blood Transfusion Reaction, Anesthesia Reactions, Chemotherapy, Radiation Therapy, MRSA, Cancer or Lung Cancer Family History FAMILY HISTORY: Positive Family Respiratory Disorders, Family Cardiac Disorders, Family Cancer and Family Surgery; Negative Family Psychiatric Problems, Family Gastrointestinal Problems or Family Anesthesia Reaction Surgical History SURGICAL: Positive Abdominal Surgery; Negative Cardiac Surgery Social History SMOKING STATUS: Former smoker SECOND HAND EXPOSURE: No ED Exam Narrative Physical exam: GENERAL APPEARANCE: alert and oriented x 4, well-developed, well-nourished, speaks 3-4 word sentences, [id number] respiratory distress VITALS: All vitals were reviewed and the pulse ox is % on room air, which is normal according to my interpretation. HEENT: Normocephalic, atraumatic; pupils equal, round, reactive to light; EOMI; mucous membranes pink, moist; oropharynx clear NECK: Supple LUNGS: no wheezes, rales and rhonchi bilaterally; tachypneic HEART: Regular rate, regular rhythm; normal S1, S2; no murmurs; left chest temporary hemodialysis catheter in place ABDOMEN: non distended; normal BS; has a right abdominal portable dialysis catheter in place; soft, no tenderness, no guarding, no rebound; no masses, no organomegaly, no hernia BACK: no CVA tenderness EXTREMITIES: atraumatic; no edema NEUROLOGIC: awake; alert and oriented x4; cranial nerves II-XII grossly intact; no focal sensory or motor deficits PSYCHIATRIC: appropriate mood and affect SKIN: warm, dry, normal color; no rashes Course Course Course Narrative: CXR is ordered for determining the etiology of shortness of breath. 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 NOW Care 06/16/24 00:53 Active Continuous Pulse Oximetry NOW Care 06/16/24 00:53 Completed EKG (ED ONLY) *Do not use* NOW Care 06/16/24 00:53 Completed Insert IV NOW Care 06/16/24 00:53 Active EKG (ED Only) Stat Exams 06/16/24 00:53 Ordered XR chest 1V portable Stat Exams 06/16/24 00:53 Taken CBC Stat Lab 06/16/24 01:22 Completed Comprehensive Metabolic Panel Stat Lab 06/16/24 01:22 Completed Magnesium Stat Lab 06/16/24 01:22 Completed Partial Thromboplastin Time Stat Lab 06/16/24 01:22 Received Prothrombin Time with INR Stat Lab 06/16/24 01:22 Received Troponin I Stat Lab 06/16/24 01:22 Completed Oxygen Delivery NOW RT 06/16/24 00:53 Active Vital Signs Vital signs: Vital Signs Temperature 97.6 F 06/15/24 23:59 Pulse Rate 86 06/15/24 23:59 Respiratory Rate 26 H 06/15/24 23:59 Blood Pressure 178/85 H 06/15/24 23:59 Pulse Oximetry (%) 95 06/15/24 23:59 Oxygen Delivery Method Room Air 06/15/24 23:59 Shortness of Breath / Dyspnea MDM Narrative MDM Narrative:: Scribe Attestation: 06/15/24 Sherley Szymanski am scribing for and in the presence of Dr. Mcqueen. Patient data External records reviewed:: [facility] previous records (Per chart review, patient was admitted here on 04/06/24 for sepsis.) Clinical information provided by:: patient Social determinants that could affect healthcare access:: none Patient has the following chronic illnesses:: ESRD (Saturday, Dr. Early), FSGS, hypertension, GERD, GI bleed, and seasonal allergies How is presenting disease/condition affected by chronic disease/condition?: uneffected by Evaluation data The following diagnostics were reviewed and interpreted by me:: lab results, radiology exam(s) and EKG tracing(s) Lab and/or radiology exams considered but not ordered:: none Interpretation Summary: CBC is normal, Potassium is elevated at 5.4, Creatinine is elevated at 14.2, Magnesium is normal, troponin is normal, according to my interpretation. CXR shows pulmonary edema bilaterally, left chest port-a-cath, no cardiomegaly, normal cardiac silhouette, according to my interpretation. EKG done at 0013, NSR, rate of 87, normal axis, no ectopy, no STEMI, according to my interpretation. Medications / Prescriptions Medications or Prescriptions considered but not ordered:: none Medication administrations:: see above, if any Consultations Consultation(s) initiated? (list below): Yes Consultation #1 (Physician, Specialty, Details): Discussed case with [the resident physician, attending Dr. Fabian] from Hospitalist service regarding admission. Discussed patients ED course, exam findings, labs, and radiology results. The Hospitalist [agrees] to accept the patient for admission. Time: 02:58 Diagnosis Shortness of Breath Differential Diagnosis: other (hyperkalemia, hypokalemia, hypermagnesemia, hypomagnesemia, pulmonary edema, fluid overload) Most likely diagnosis given after review of the tests above:: see below Admission Indicated Admission indicated?: indicated Admission Request Was there a request for admission?: Yes Admission Attestation Admission request attestation: Discussed case with [] from Hospitalist service regarding admission. Discussed patients ED course, exam findings, labs, and radiology results. The Hospitalist [agrees,declines] to accept the patient for admission. Disposition Plan Disposition Plan: Admit Discharge Plan Plan Patient Disposition: Admit Acute Care w/in Hospital Prescriptions/Referrals Prescriptions/Med Rec: No Action cetirizine 10 mg Tablet 10 mg PO QDAY lidocaine [DermacinRx Lidocan] 5 % adhesive patch,medicated 1 patch topical QDAY 30 Days Qty: 30 6RF Rx Instructions: leave on most painful area for up to 12 hrs pantoprazole 40 mg tablet,delayed release (DR/EC) 40 mg PO QDAY Qty: 60 0RF Velphoro 500 mg tablet,chewable 500 mg PO TIDWM calamine-zinc oxide 8-8 % Lotion 1 applic top UD PRN (Reason: Itching) Qty: 177 0RF amlodipine 5 mg tablet 5 mg PO QDAY Qty: 30 0RF Patient Comments: TAKE 1 TABLET BY MOUTH TWICE A DAY Rx Instructions: Hold if BP below 110/80 Give on //Sat/Sun diphenhydramine HCl [Benadryl] 25 mg capsule 25 mg PO BID Qty: 20 0RF furosemide [Lasix] 20 mg tablet 20 mg PO BID Qty: 30 0RF Problem List Clinical Impression: Pulmonary edema, Uremia Patient/Caregiver Discharge Instructions Print Language: Australian Stand Alone Forms: Brittany Award Info., Patient Portal Info Letter
--- NOTE | 2024-06-16 00:53 | XR_ITS ---
Examination: AP chest single view Technique one AP portable semiupright chest single view Exam date and time: 03/06/2025 0131 hours Comparison April 06, 2024 INDICATIONS: Dyspnea today FINDINGS: Prominent CHF Mild enlargement cardiac contour with prominent vascular congestion and perihilar edema Left internal jugular dialysis catheter tips right atrium IMPRESSION: Prominent CHF Consider superimposed bilateral pneumonia
[2024-06-16 02:01] LABS: Basophils % (Auto) 0 % (0-2.5); Eosinophils # (Auto) 0.2 Thou/mm3 (0.0-0.5); Eosinophils % (Auto) 2 % (0-10); Hematocrit 36.3 % (41.0-53.0); Hemoglobin 11.4 g/dL (13.5-16.0); Immature Granulocytes % (Auto) 1 % (0-0); Immature Granulocytes Auto 0.05 Thou/mm3 (0.00-0.00); Lymphocytes # (Auto) 0.5 Thou/mm3 (1.0-4.8); Lymphocytes % (Auto) 5 % (10-50); Mean Corpuscular HGB Conc 31.4 g/dl (31.0-37.0); Mean Corpuscular Hemoglobin 27.9 pg (25.0-35.0); Mean Corpuscular Volume 89 fL (80-100); Monocytes # (Auto) 0.8 Thou/mm3 (0.0-0.8); Monocytes % (Auto) 9 % (0-12); Neutrophils # (Auto) 7.9 Thou/mm3 (1.8-7.7); Neutrophils % (Auto) 83 % (37-80); Nucleated Red Blood Cell % 0 /100 WBC (0); Platelet Count 240 Thou/mm3 (140-440); RDW Standard Deviation 51.2 fL (35.1-43.9); Red Blood Count 4.09 Miln/mm3 (4.50-5.90); White Blood Count 9.5 Thou/mm3 (3.8-10.6)
[2024-06-16 02:10] LABS: Alanine Aminotransferase < 7 U/L (10-49); Albumin, Serum 4.3 gm/dL (3.5-5.0); Albumin/Globulin Ratio 1.2 (1.2-2.2); Alkaline Phosphatase 104 U/L (46-116); Anion Gap 13 (7-16); Aspartate Amino Transferase 16 U/L (0-34); Bilirubin,Total 0.2 mg/dL (0.3-1.2); Blood Urea Nitrogen 84 mg/dL (9-23); Calcium 8.9 mg/dL (8.3-10.6); Calcium (Corrected) 8.9 mg/dL (8.5-10.1); Carbon Dioxide 21.6 mMol/L (20.0-31.0); Chloride 102 mMol/L (98-107); Globulin 3.7 gm/dL (2.3-3.5); Glucose 99 mg/dL (74-106); Magnesium 2.6 mg/dL (1.6-2.6); Osmolality,Calculated 299 (275-295); Potassium 5.4 mMol/L (3.4-5.1); Sodium 137 mMol/L (136-145); Troponin I 0.037 ng/mL (0.0-0.045)
[2024-06-16 02:19] LABS: BUN/Creatinine Ratio 6 Ratio (12-20); eGFR 4 See Note
[2024-06-16 02:28] LABS: Creatinine (Component) 14.2 mg/dL (0.6-1.3)
[2024-06-16] MEDS: FUROSEMIDE INJ 10 MG/ML 4ML VIAL 80 MG IVP (03:16)
[2024-06-16] MEDS: LORazepam 2 MG/ML VIAL 0.5 MG IVP (04:28)
--- NOTE | 2024-06-16 04:49 | PD.RESHP ---
Documentation for date of: 06/16/24 [facility] History of Present Illness Chief complaint: Shortness of breath x 12 hours History of present illness: Patient is a 58-year-old male with past medical history of ESRD on HD M/W/F with Dr. Early, CHF (EF 45-50% 03/2024), hypertension, previous GI bleed, GERD, and seasonal allergies who presented to the ED on 06/16/2024 with acute shortness of breath which started around 4 pm yesterday after patient got home from having a left permanent dialysis catheter placed. Patient states that he missed dialysis that day due to the late procedure. Patient states shortness of breath was onset while he was sitting and watching TV. He endorses orthopnea. He reports chest pain that is described as soreness around the area of new catheter. He denies any fevers, chills, nausea, vomiting, or diarrhea. He states he does still urinate. Patient was first started dialysis in early 2023 and was previously on peritoneal dialysis. ED Course: -Initial vitals were BP 178/85, HR 86, RR 26, Temp 97.6. Per EMS pt saturating 82% and put on 15L O2 on arrival. On admission was saturating 93% on 4L NC. -Labs significant for potassium 5.4, BUN 84, creatinine 14.2, GFR 4 -CXR showing significant bilateral infiltrates suggestive of fluid overload -In the ED, patient was given Lasix 80 mg IV x1 -Patient was admitted for acute hypoxic respiratory failure secondary to CHF exacerbation/fluid overload due to missed dialysis session, Nephrology consulted Review of Systems Review of systems otherwise negative except what is mentioned above. Past Medical History Past Medical History NEUROLOGIC: Negative Neurological Disorders or Seizures CARDIAC: Positive Cardiac Disorders and Hypertension (TAKES MED); Negative Congestive Heart Failure RESPIRATORY: Negative Chronic Obstructive Pulmonary Disease (COPD) GASTROINTESTINAL: Negative Gastrointestinal Disorders GENITOURINARY: Negative Genitourinary Disorders or Renal Disease MUSCULOSKELETAL: Negative Musculoskeletal Disorders ENDOCRINE: Negative Endocrine Disorders, Diabetes Mellitus Type 1 or Diabetes Mellitus Type 2 HEMATOLOGIC: Negative Blood Disorders OTHER HISTORY: Positive Chicken Pox, Measles and Mumps; Negative Hospitalization, Autoimmune Disease, Shingles, Falls, Blood Transfusions, Blood Transfusion Reaction, Anesthesia Reactions, Chemotherapy, Radiation Therapy or MRSA Family History FAMILY HISTORY: Positive Family Respiratory Disorders (FATHER (COPD)), Family Cardiac Disorders (FATHER (AL)), Family Cancer (MOTHER,SISTER (CERVICAL),SISTER (INTESTINE)) and Family Surgery (MOTHER,SISTER,FATHER); Negative Family Psychiatric Problems, Family Gastrointestinal Problems or Family Anesthesia Reaction Surgical History OTHER SURGICAL HX: Hernia repair Social History SMOKING STATUS: Former smoker (3-4 cigarettes per day for 30 yrs) ALCOHOL: Former (one bottle hard liquor per week for 30 years) Exam Vital Signs Temp Pulse Resp BP Pulse Ox O2 Del Method O2 Flow Rate 98.1 F 86 25 H 168/103 H 98 Nasal Cannula 4 06/16/24 04:07 06/16/24 03:45 06/16/24 03:45 06/16/24 03:45 06/16/24 03:45 06/16/24 01:23 06/16/24 03:30 Narrative Exam Physical Exam General: Awake and in no acute distress. Conversational however becoming short of breath when answering questions. HEENT: Normocephalic, atraumatic, mucous membranes moist. Heart: Regular rate and rhythm, no murmurs. Left dialysis catheter in place with clean dressings, tender to palpation, no evidence of erythema, hematoma, or drainage to surrounding site. Lungs: Crackles ausculated in lower lung chowdhury bilaterally. Abdomen: Soft, nondistended, nontender, positive bowel sounds. ?No guarding or rebound tenderness. Neurologic: Alert and oriented x3, no gross neurological deficit, and patient able to move all 4 extremities. Extremities: Mild peripheral edema. Skin: No rash or ecchymoses. Results: Labs 06/16/24 01:22 06/16/24 01:22 Labs: Short CBC 06/16/24 Range/Units 01:22 WBC 9.5 (3.8-10.6) Thou/mm3 Hgb 11.4 L (13.5-16.0) g/dL Hct 36.3 L (41.0-53.0) % Plt Count 240 (140-440) Thou/mm3 BMP 06/16/24 01:22 Sodium 137 Potassium 5.4 H Chloride 102 Carbon Dioxide 21.6 BUN 84 H Creatinine 14.2 H* Glucose 99 Calcium 8.9 Cardiac Enzymes 06/16/24 Range/Units 01:22 Troponin I 0.037 (0.0-0.045) ng/mL Liver Function 06/16/24 Range/Units 01:22 Total Bilirubin 0.2 L (0.3-1.2) mg/dL AST 16 (0-34) U/L ALT < 7 L (10-49) U/L Alkaline Phosphatase 104 (46-116) U/L Albumin 4.3 (3.5-5.0) gm/dL Quality Measures Quality Measures none Medications Home Medications and Allergies Home Medications ?Medication ?Instructions ?Recorded ?Confirmed ?Type sucroferric oxyhydroxide 500 mg 500 mg PO TIDWM 04/06/24 06/16/24 History chewable tablet (Velphoro) amlodipine 5 mg tablet 5 mg PO BID 06/16/24 06/16/24 History metoprolol tartrate 50 mg tablet 50 mg PO BID 06/16/24 06/16/24 History (Lopressor) Allergies Allergy/AdvReac Type Severity Reaction Status Date / Time vancomycin Allergy Intermediate Rash Verified 06/16/24 03:16 ciprofloxacin [From Cipro] Allergy Rash Verified 04/06/24 10:45 Visit Medications Acetaminophen (Acetaminophen 325 Mg Tablet) 650 mg PO Q6H PRN PRN Reason: Fever >100.4 or Pain 1-10 Stop: 07/16/24 03:52 Heparin Sodium (Porcine) (Heparin Sod Inj 5000 Unit/Ml Vial) 5,000 unit SC Q12HR RAFIA Stop: 06/30/24 08:59 Ondansetron HCl (Ondansetron Inj 2 Mg/Ml Inj 2 Ml) 4 mg IV Q6H PRN; Protocol PRN Reason: NAUSEA OR VOMITING Stop: 07/16/24 03:58 Discontinued Medications Furosemide (Furosemide Inj 10 Mg/Ml 4ml Vial) 80 mg IVP X1 ONE Stop: 06/16/24 02:54 Last Admin: 06/16/24 03:16 Dose: 80 mg Lorazepam (Lorazepam 2 Mg/Ml Vial) 0.5 mg IVP X1 ONE Stop: 06/16/24 04:24 Last Admin: 06/16/24 04:28 Dose: 0.5 mg Assessment & Plan Plan 58-year-old male with past medical history of ESRD on HD M/W/F with Dr. Early, CHF (EF 45-50% 03/2024), hypertension, previous GI bleed, GERD, and seasonal allergies who presented to the ED on 06/16/2024 with acute shortness of breath which started around 4 pm after patient got home from having a left permanent dialysis catheter placed. Patient was admitted for acute hypoxic respiratory failure secondary to CHF exacerbation and fluid overload from missed dialysis. #Acute hypoxic respiratory failure, secondary to #Fluid overload secondary to missed dialysis #HFpEF (last EF 45-50% 03/2024), in acute exacerbation Patient on hemodialysis M/W/F with Dr. Early, missed dialysis session Saturday due to permcath placement, started having shortness of breath that afternoon and desaturations to 80s without oxygen. He is not on home O2. Previous echo from 03/2024 showed mild hypokinesis mid anterior septal wall. Estimated EF 45-50%. Patient does make urine and was given 80 mg Lasix IV x1 in the ED -Nephrology Dr. Early was consulted, contacted and patient will be scheduled for dialysis this AM -Echo ordered -A1c ordered -Lipid panel ordered -Resume home Lasix following dialysis -Continue home sevelamer 800 mg TID -Fluid restriction 1500 ml qday -Strict intake and output measurements #Hyperkalemia Potassium 5.4 -Patient will receive dialysis this AM -Monitor CMP #History of hypertension Patient history. -Continue home amplodipine 5 mg qday #History of GERD #History of GI bleed Patient history. -Continue home pantoprazole 40 mg PO qday DVT prophylaxis: Heparin 5,000 U subQ GI prophylaxis: Pantoprazole 40 mg PO qday Diet: Renal Buckner: None Lines: Peripheral IV Antibiotics: None CODE STATUS: FULL Reason for hospitalization: AHRF due to fluid overload secondary to missed dialysis Patient plan of care was discussed with the attending physician, Dr. Leggett. Philly Fraser, PGY-2 Attending Provider Attestation/Addendum Patient is being admitted for fluid overload. The patient missed hemodialysis. He is a patient of Dr. Early. He had permanent hemodialysis catheter placement. Patient denies chest pain. He is not dizzy or lightheaded. Potassium is 5.4, creatinine is 14.2. EKG showed sinus rhythm with occasional PVCs. Chest x-ray showed pulmonary congestion. Oxygen saturation 96% on room air.
[2024-06-16 06:51] LABS: Basophils % (Auto) 0 % (0-2.5); Eosinophils # (Auto) 0.1 Thou/mm3 (0.0-0.5); Eosinophils % (Auto) 1 % (0-10); Hematocrit 34.8 % (41.0-53.0); Immature Granulocytes % (Auto) 0 % (0-0); Immature Granulocytes Auto 0.03 Thou/mm3 (0.00-0.00); Lymphocytes # (Auto) 0.5 Thou/mm3 (1.0-4.8); Lymphocytes % (Auto) 5 % (10-50); Mean Corpuscular HGB Conc 31.6 g/dl (31.0-37.0); Mean Corpuscular Hemoglobin 28.3 pg (25.0-35.0); Mean Corpuscular Volume 90 fL (80-100); Monocytes # (Auto) 0.9 Thou/mm3 (0.0-0.8); Monocytes % (Auto) 10 % (0-12); Neutrophils # (Auto) 8.2 Thou/mm3 (1.8-7.7); Neutrophils % (Auto) 84 % (37-80); Nucleated Red Blood Cell % 0 /100 WBC (0); Platelet Count 243 Thou/mm3 (140-440); RDW Standard Deviation 53.1 fL (35.1-43.9); Red Blood Count 3.89 Miln/mm3 (4.50-5.90); White Blood Count 9.8 Thou/mm3 (3.8-10.6)
[2024-06-16 07:26] LABS: Partial Thromboplastin Time 32.8 Seconds (22.0-36.0); Prothrombin Time 11.4 Seconds (9.0-12.2)
[2024-06-16 07:43] LABS: Glucose Estimated Average 80 mg/dL (80-131); Hemoglobin A1C 4.4 % Hgb (4.8-6.0)
--- NOTE | 2024-06-16 08:06 | PC.NURSE ---
Patient transported to HD via [facility] with Myrna Lord.
[2024-06-16 08:09] LABS: B-Type Natriuretic Peptide 2120 pg/mL (0-100)
[2024-06-16 08:47] LABS: Alanine Aminotransferase 8 U/L (10-49); Albumin, Serum 4.6 gm/dL (3.5-5.0); Albumin/Globulin Ratio 1.3 (1.2-2.2); Alkaline Phosphatase 102 U/L (46-116); Anion Gap 13 (7-16); Aspartate Amino Transferase 10 U/L (0-34); BUN/Creatinine Ratio 6 Ratio (12-20); Bilirubin,Total 0.3 mg/dL (0.3-1.2); Blood Urea Nitrogen 85 mg/dL (9-23); Calcium 8.9 mg/dL (8.3-10.6); Calcium (Corrected) 8.9 mg/dL (8.5-10.1); Carbon Dioxide 20.8 mMol/L (20.0-31.0); Cardiac Risk Estimate 2.4 RATIO (4.0-6.7); Chloride 102 mMol/L (98-107); Cholesterol 92 mg/dL (132-200); Estimated Creatinine Clearance 6.9 mL/min (>60); Globulin 3.6 gm/dL (2.3-3.5); Glucose 91 mg/dL (74-106); HDL Cholesterol 39 mg/dL (40-60); LDL Cholesterol,Calculated 43 mg/dL (0-130); Magnesium 2.7 mg/dL (1.6-2.6); Osmolality,Calculated 297 (275-295); Phosphorous 6.5 mg/dL (2.4-5.1); Potassium 5.9 mMol/L (3.4-5.1); Sodium 136 mMol/L (136-145); Total Protein 8.2 gm/dL (5.7-8.2); Triglycerides 51 mg/dL (30-150); eGFR 4 See Note
[2024-06-16 09:36] LABS: Creatinine (Component) 14.4 mg/dL (0.6-1.3)
[2024-06-16] MEDS: ACETAMINOPHEN 325 MG TABLET 650 MG PO (10:52)
--- NOTE | 2024-06-16 11:01 | ESDS_ITS ---
Planned Discharge Date 06/16/24 DS: Providers Provider Date of admission: 06/16/24 03:53 Primary care physician: Physician No Primary/Family Admitting Provider: Ace Leggett MD Attending Provider on Admission: Jose Ordonez MD Consults: 06/16/24 04:02 Consult to Nephrology Routine Comment: Dialysis Consulting Provider: Eyal Early Attending Provider on DC: Lance Shelton MD Discharging Provider: Lance Shelton MD DS: Diagnosis Problem List Completed Was Problem List Reviewed/Reconciled?: Yes Hospital Course Hospital Course Hospital course: Patient is a 58-year-old male with past medical history of ESRD on HD M/W/F with Dr. Early, CHF (EF 45-50% 03/2024), hypertension, previous GI bleed, GERD, and seasonal allergies who presented to the ED on 06/16/2024 with acute shortness of breath which started around 4 pm yesterday after patient got home from having a left permanent dialysis catheter placed. Patient states that he missed dialysis that day due to the late procedure. Patient states shortness of breath was onset while he was sitting and watching TV. He endorses orthopnea. He reports chest pain that is described as soreness around the area of new catheter. He denies any fevers, chills, nausea, vomiting, or diarrhea. He states he does still urinate. Patient was first started dialysis in early 2023 and was previously on peritoneal dialysis. ED Course: -Initial vitals were BP 178/85, HR 86, RR 26, Temp 97.6. Per EMS pt saturating 82% and put on 15L O2 on arrival. On admission was saturating 93% on 4L NC. -Labs significant for potassium 5.4, BUN 84, creatinine 14.2, GFR 4 -CXR showing significant bilateral infiltrates suggestive of fluid overload -In the ED, patient was given Lasix 80 mg IV x1 -Patient was admitted for acute hypoxic respiratory failure secondary to CHF exacerbation/fluid overload due to missed dialysis session, Locksmith Helper Dr. Early was consulted. The patient received urgent HD this morning and his SOB improved. His vitals were stable. His discharge plan was discussed with him and he agreed with the discharge plans. He was discharged home. Problems: #Acute hypoxic respiratory failure, secondary to #Fluid overload secondary to missed dialysis #HFpEF (last EF 45-50% 03/2024), in acute exacerbation #Hyperkalemia #History of hypertension #History of GERD #History of GI bleed Plans: Please follow-up with your PCP and segmental paver installer within 1 week of discharge. -Continue regularly scheduled hemodialysis sessions on Saturday, Saturday and Saturday. -Continue with all the medicines as prescribed -Recommended to return back to ED if your symptoms persist or does not improve. The patient's management plan was discussed with my attending physician MD Lance Kellogg MD, PGY2 Time Spent with Patient Time attestation: Total time spent providing and/or coordinating discharge services: >40 min Exam Vital Signs Temp Pulse Resp BP Pulse Ox O2 Del Method O2 Flow Rate 98.4 F 81 18 133/87 H 95 Room Air 4 06/16/24 08:22 06/16/24 10:45 06/16/24 08:22 06/16/24 10:45 06/16/24 08:22 06/16/24 05:46 06/16/24 08:22 Narrative Exam General: Awake and in no acute distress. HEENT: Normocephalic, atraumatic, mucous membranes moist. Heart: Regular rate and rhythm, no murmurs. Left dialysis catheter in place with clean dressings, tender to palpation, no evidence of erythema, hematoma, or drainage to surrounding site. Lungs: Crackles ausculated in lower lung chowdhury bilaterally. Abdomen: Soft, nondistended, nontender, positive bowel sounds. ?No guarding or rebound tenderness. Neurologic: Alert and oriented x3, no gross neurological deficit, and patient able to move all 4 extremities. Extremities: Mild peripheral edema. Skin: No rash or ecchymoses. Discharge Plan Plan Patient Disposition: HOME (Self Care) Care Plan Goals: Please follow-up with your PCP and segmental paver installer within 1 week of discharge. -Continue regularly scheduled hemodialysis sessions on Saturday, Saturday and Saturday. -Continue with all the medicines as prescribed -Recommended to return back to ED if your symptoms persist or does not improve. Prescriptions/Referrals Prescriptions/Med Rec: Continued pantoprazole 40 mg tablet,delayed release (DR/EC) 40 mg PO QDAY Qty: 60 0RF Velphoro 500 mg tablet,chewable 500 mg PO TIDWM furosemide [Lasix] 20 mg tablet 20 mg PO BID Qty: 30 0RF metoprolol tartrate [Lopressor] 50 mg tablet 50 mg PO BID Patient Comments: TAKE 1 TABLET BY MOUTH TWICE A DAY amlodipine 5 mg tablet 5 mg PO BID Patient Comments: TAKE 1 TABLET BY MOUTH TWICE A DAY Rx Instructions: Hold if BP below 110/80 Give on //Sat/Sun Referrals: No Primary/Family,Physician [Primary Care Provider] - Patient/Caregiver Discharge Instructions Discharge Activity: activity as tolerated Other Discharge Activity Instructions:: Please follow-up with your PCP and segmental paver installer within 1 week of discharge. -Continue regularly scheduled hemodialysis sessions on Saturday, Saturday and Saturday. -Continue with all the medicines as prescribed -Recommended to return back to ED if your symptoms persist or does not improve. Education Materials: Exercise for a Healthier Heart, Kidney Failure Healthcare Team, Kidney Disease Anemia Iron, Kidney Disease: Eating Less Sodium Print Language: Bahamian Stand Alone Forms: [employer] Award Info., Patient Portal Info Letter, Work/Release Restrictions Discharge Order Discharge Orders: Discharge (Routine); Ordered 06/16/24 Ordered By: Lance Shelton Quality Discharge Quality Measures VTE prophylaxis Attestestation MD Attestation I reviewed labs, imaging, EKG, home medications and prior available records. Face to face evaluation was performed by me. I have personally examined the patient and discussed assessment and plan with the IM team. I reviewed the resident note and agree with the plan with exceptions as below. ESRD on hemodialysis HFpEF EF 45% Hyperkalemia Acute hypoxic respiratory failure Had a session of hemodialysis Saturating well on room air Discussed with nephrology: Okay to discharge from nephrology standpoint. Next session will be tomorrow Monitor potassium level as outpatient Echocardiogram as outpatient Time spent is 25 minutes. More than 50% of the time was spent on patient education and coordination of care.
[2024-06-16] MEDS: HEPARIN SOD INJ 1000 UNIT/ML VIAL 10 ML 3900 UNIT INDWELLCAT (11:13)
--- NOTE | 2024-06-16 11:51 | PC.NURSE ---
Patient return to room 18, per Rn report removed 3.5l at HD, HR 90, BP 126/93 and administed Tylenol for Headache.
--- NOTE | 2024-06-16 12:07 | PC.CC ---
Pt Mike Samayoa is a 58 yr old male admitted to hospitalist services for acute hypoxic respiratory failure 2/2 to fluid overload due to missed dialysis session. HFpEF in acute exacerbation, hyperkalemia. ASW met with pt at bedside to complete initial assessment. At time of encounter pt is noted to be alert and oriented to person, place and situation. Pt expressed understanding admission orders. Pt able to confirm demographic information. Pt is from home [address] [place] [address], where he lives with his life partner Shauna Flynn [phone]. Pt identifies Ms. Flynn as his surrogate DM. Pt is employed. At baseline pt reports being independent with ambulation and with completing his ADLs. Pt is on dialysis M,W, F at 0400. Pt dialysis center is [facility]. Pt states he transports himself to and from dialysis. Pt states he does not require supplemental O2 at baseline, though is on O2 in ED due to fluid overload. Pt reports he is not diabetic. Pt is followed by [facility] on [address] Pts nut steamer is Dr. Early. At time of D/c pt will return with his partner providing transport.
== END 2024-06-16 14:39 | disposition home or self-care (01) ==
LOC: SERX 06-16 04:25 → SERHOLD 06-16 06:28
PROVIDERS: Student in an Organized Health Care Education/Training Program; Admitting Provider Internal Medicine; Emergency Provider Emergency Medicine; Visit Provider Student in an Organized Health Care Education/Training Program
DX: J96.01 Acute respiratory failure with hypoxia (principal); E87.70 Fluid overload, unspecified; E10.22 Type 1 diabetes mellitus with diabetic chronic kidney disease; E66.9 Obesity, unspecified; E87.5 Hyperkalemia; I13.2 Hypertensive heart and chronic kidney disease with heart failure and with stage 5 chronic kidney disease, or end stage renal disease; I50.32 Chronic diastolic (congestive) heart failure; K21.9 Gastro-esophageal reflux disease without esophagitis; N18.6 End stage renal disease; Z87.891 Personal history of nicotine dependence; Z87.19 Personal history of other diseases of the digestive system; Z99.2 Dependence on renal dialysis; Z68.28 Body mass index [BMI] 28.0-28.9, adult
CPT/HCPCS: 36415; 71045; 80053; 80061; 83036; 83735; 83880; 84100; 84484; 85025; 85610; 85730; 87811; 90935; 93005; 99285; G0378; J1643; J1940; J2060; A9270; G0257

== ENCOUNTER → 2024-10-05 | Day surgery (SDC) | payer OTHER, MEDICAID, SELFPAY ==
--- NOTE | 2024-10-05 13:00 | XR_ITS ---
Examination: Unsuccessful venous access removal tunneled dialysis catheter Fluoroscopy AP chest single view Exam date and time: September 27, 2024 1409 hours INDICATIONS: Patient now has a peritoneal dialysis catheter TECHNIQUE AND FINDINGS: Informed consent provided. Timeout performed. Skin prepped over the entrance site of the permanent tunneled dialysis catheter 1% lidocaine administered for local anesthesia Despite numerous blunt dissections, unsuccessful removal of the dialysis catheter IMPRESSION: Unsuccessful removal of the dialysis catheter
[2024-10-05 13:35] VITALS: BMI 28.0
[2024-10-05 13:37] VITALS: BP 130/87; PULSE 65; RESP 17; TEMP 36; O2SAT 99
[2024-10-05 14:01] LABS: Basophils # (Auto) 0.1 Thou/mm3 (0.0-0.2); Basophils % (Auto) 1 % (0-2.5); Eosinophils # (Auto) 0.6 Thou/mm3 (0.0-0.5); Eosinophils % (Auto) 8 % (0-10); Hematocrit 36.7 % (41.0-53.0); Hemoglobin 11.6 g/dL (13.5-16.0); Immature Granulocytes % (Auto) 1 % (0-0); Immature Granulocytes Auto 0.04 Thou/mm3 (0.00-0.00); Lymphocytes # (Auto) 1.1 Thou/mm3 (1.0-4.8); Lymphocytes % (Auto) 16 % (10-50); Mean Corpuscular HGB Conc 31.6 g/dl (31.0-37.0); Mean Corpuscular Hemoglobin 28.8 pg (25.0-35.0); Mean Corpuscular Volume 91 fL (80-100); Monocytes # (Auto) 0.7 Thou/mm3 (0.0-0.8); Monocytes % (Auto) 9 % (0-12); Neutrophils # (Auto) 4.5 Thou/mm3 (1.8-7.7); Neutrophils % (Auto) 64 % (37-80); Nucleated Red Blood Cell % 0 /100 WBC (0); Platelet Count 282 Thou/mm3 (140-440); RDW Standard Deviation 57.9 fL (35.1-43.9); Red Blood Count 4.03 Miln/mm3 (4.50-5.90)
[2024-10-05 14:09] LABS: Partial Thromboplastin Time 30.2 Seconds (22.0-36.0); Prothrombin Time 11.2 Seconds (9.0-12.2)
[2024-10-05 15:10] VITALS: BP 163/92; PULSE 67; RESP 12; O2SAT 100
== END | disposition home or self-care (01) ==
PROVIDERS: Radiology Diagnostic Radiology; PCP Family Medicine; Referring Provider Internal Medicine; Visit Provider Internal Medicine
DX: T80.212A Local infection due to central venous catheter, initial encounter (principal); Z01.812 Encounter for preprocedural laboratory examination
CPT/HCPCS: 36589; 36415; 77001; 85025; 85610; 85730; A4649

== ENCOUNTER 2025-05-26 12:30 | Emergency (ER) | payer BC, MEDICAID, SELFPAY ==
[2025-05-26 12:36] VITALS: PULSE 88; RESP 16; O2SAT 96; BMI 27.7
[2025-05-26 12:38] VITALS: BP 153/90; PULSE 76; RESP 18; TEMP 36.7; O2SAT 97; BMI 28.5
--- NOTE | 2025-05-26 13:07 | XR_ITS ---
Examination: Left hip AP, lateral, AP pelvis 3 views Technique: Hip AP lateral, AP pelvis, 3 views Exam date and time: May, 1343 hours INDICATION: Patient fell today with injury to left hip, left hip pain. FINDINGS: Severe osteopenia No acute left hip fracture Acute appearing fractures left superior and inferior pubic rami IMPRESSION: Recommend CT scan pelvis follow-up to confirm acute fractures left superior inferior pubic rami without significant displacement
--- NOTE | 2025-05-26 13:10 | EDNOTE_ITS ---
<Statement entered by Emelyn Oquendo MD - 06/10/25 07:24> As co-signing physician, I was present and available for consult prn. I concur with the plan and care as documented by the midlevel provider. ED Fall Injury RME/HPI General Chief Complaint: Fall Stated Complaint: FALL Time Seen by Provider: 05/26/25 12:47 Arrival date/time: 05/26/25 12:30 59-year-old male patient was brought in by EMS for evaluation regarding left hip pain. Patient sustained a ground-level fall landing on his left hip resulting to pain, described as dull ache, severity moderate. Incident happened around 7:30 AM today. Patient was trying to turn off the dialysis machine that was running overnight. Patient denies any head injury his only complaint is pain to the left hip. According to him he felt dizzy when he got up. Denies any chest pain denies any shortness of breath denies any other complaints after the fall patient is unable to ambulate with a walker however just get worst after few steps. Patient was given fentanyl [address] to the emergency room. Related Data Home Medications ?Medication ?Instructions ?Recorded ?Confirmed sucroferric oxyhydroxide 500 mg 500 mg PO TIDWM 10/05/24 chewable tablet (Velphoro) amlodipine 5 mg tablet 5 mg PO BID 06/16/24 5 metoprolol tartrate 50 mg tablet 50 mg PO BID 06/16/24 10/05/24 (Lopressor) doxycycline monohydrate 100 mg 100 mg PO BID 10/05/24 10/05/24 capsule furosemide 20 mg tablet (Lasix) 40 mg PO BID 10/05/24 10/05/24 Previous Rx's ?Medication ?Instructions ?Recorded pantoprazole 40 mg tablet,delayed 40 mg PO QDAY #60 ta bs 10/14/23 release acetaminophen 300 mg-codeine 30 mg 1 tab PO Q8H PRN pa in #21 tabs 05/26/25 tablet Allergies Allergy/AdvReac Type Severity Reaction Status Date / Time vancomycin Allergy Intermediate Rash Verified 10/05/24 13:46 ciprofloxacin (From Cipro) Allergy Rash Verified 10/05/24 13:46 Review of Systems Review of Systems Narrative Review of Systems: Review of system reviewed and within normal limits except mentioned in HPI ED Exam Narrative Physical exam: VITAL SIGNS: Reviewed. GENERAL APPEARANCE: Alert and interactive, follows commands, no acute distress, HEAD AND FACE: Non-traumatic. ENT: PERRL, pink conjunctivitis, eyelid no trauma, Mucous membrane moist. NECK: Supple, nontender, no nuchal rigidity. CHEST: No tenderness, no crepitus, no paradoxical movement, no retractions. LUNGS: Clear, well ventilated, symmetric, no rales, no wheezing, no ronchi, no stridor, good breath sounds bilaterally. HEART: Regular rate, regular rhythm, no murmur, no gallops. ABDOMEN: Soft, positive bowel sounds, nondistended, no guarding, nontender, no rebound, no masses, RECTAL: Deferred. GENITAL: Deferred. NEUROLOGICAL: Gross motor function intact sensory function intact, Appropriate for age. MUSCULOSKELETAL: low back nontender, full range of motion. EXTREMITIES: Left hip tenderness, with limitation range of motion. Distal neurovascular status intact SKIN: Color pink, dry, no rash, no lacerations, no abrasions, no contusions. LYMPHATICS: Deferred. Course Quality Measures none Orders Category Date Time Status EKG (ED ONLY) *Do not use* NOW Care 05/26/25 13:10 Completed EKG (ED Only) Stat Exams 05/26/25 13:10 Draft XR chest 1V Stat Exams 05/26/25 13:10 Completed XR hip LT w pelvis 2-3V Stat Exams 05/26/25 13:07 Completed BNP [B-Type Natriuretic Peptide] Stat Lab 05/26/25 13:33 Completed CBC [CBC] Stat Lab 05/26/25 13:33 Completed CMP [Comprehensive Metabolic Panel] Stat Lab 05/26/25 13:33 Completed Magnesium Stat Lab 05/26/25 13:33 Completed PTT [Partial Thromboplastin Time] Stat Lab 05/26/25 13:33 Completed Troponin I Stat Lab 05/26/25 13:33 Completed Morphine* Inj Med 05/26/25 13:22 Discontinued 4 mg IVP X1 ONE Ondansetron Inj [Zofran Inj] Med 05/26/25 13:22 Discontinued 4 mg IVP X1 ONE Vital Signs Vital signs: Vital Signs Temperature 98.0 F 05/26/25 12:38 Pulse Rate 76 05/26/25 12:38 Respiratory Rate 18 05/26/25 12:38 Blood Pressure 153/90 H 05/26/25 12:38 Pulse Oximetry (%) 97 05/26/25 12:38 Oxygen Delivery Method Room Air 05/26/25 12:38 Fall MDM Narrative MDM Narrative:: 59-year-old male patient was brought in by EMS for evaluation regarding left hip pain. Patient sustained a ground-level fall landing on his left hip resulting to pain, described as dull ache, severity moderate. Incident happened around 7:30 AM today. Patient was trying to turn off the dialysis machine that was running overnight. Patient denies any head injury. According to him he felt dizzy when he got up. Denies any chest pain denies any shortness of breath denies any other complaints after the fall patient is unable to ambulate with a walker however just get worst after few steps. Patient was given fentanyl [address] to the emergency room. EKG showed sinus rhythm ventricular rate of 76 bpm, no ST segment elevation depression noted. Patient's laboratory workup is significant for ESRD potassium is normal X-ray of the pelvis showed to the left pelvis showed nondisplaced fracture of the left superior and inferior ramus. Chest x-ray showed possible nondisplaced fracture of the right fifth rib clinically patient is not having any pain or bruising. Results discussed with the patient, patient is stable for discharge home. Nondisplaced of the inferior and superior ramus will heal on its own. Patient data External records reviewed:: None Clinical information provided by:: patient and family Social determinants that could affect healthcare access:: none Patient has the following chronic illnesses:: ESRD diabetes mellitus hypertension How is presenting disease/condition affected by chronic disease/condition?: exacerbated by Evaluation data The following diagnostics were reviewed and interpreted by me:: lab results, radiology exam(s) and EKG tracing(s) Lab and/or radiology exams considered but not ordered:: None Interpretation Summary: See above Medications / Prescriptions Medications or Prescriptions considered but not ordered:: None Medication administrations:: Medication Administration History Discontinued Medications Morphine Sulfate (Morphine Sulf Inj 4 Mg/Ml Vial) 4 mg IVP X1 ONE Stop: 05/26/25 13:23 Last Admin: 05/26/25 13:44 Dose: 4 mg Documented By: DO Ondansetron HCl (Ondansetron Inj 2 Mg/Ml Inj 2 Ml) 4 mg IVP X1 ONE; Protocol Stop: 05/26/25 13:23 Last Admin: 05/26/25 13:40 Dose: 4 mg Documented By: DO Morphine, Zofran Consultations Consultation(s) initiated? (list below): No Diagnosis Fall Differential Diagnosis: other (Pelvic pain pelvic fracture hip fracture status post fall) Most likely diagnosis given after review of the tests above:: Pelvic fracture, status post fall Admission Indicated Admission indicated?: not indicated Admission Request Was there a request for admission?: No Disposition Plan Disposition Plan: Discharge Discharge Attestation Discharge Attestation: The patient and all family members were given an opportunity to ask questions and understood the discharge instructions. Discharge instructions specifically effects, indications for sooner follow up or return to the emergency department, and the expected course of current diagnosis. Patient condition: Stable Discharge Plan Plan Patient Disposition: HOME (Self Care) Discharge Disposition comment: stable Prescriptions/Referrals Prescriptions/Med Rec: New acetaminophen-codeine 300-30 mg tablet 1 tab PO Q8H PRN (Reason: pain) Qty: 21 0RF No Action pantoprazole 40 mg tablet,delayed release (DR/EC) 40 mg PO QDAY Qty: 60 0RF Velphoro 500 mg tablet,chewable 500 mg PO TIDWM doxycycline monohydrate 100 mg capsule 100 mg PO BID furosemide [Lasix] 20 mg tablet 40 mg PO BID metoprolol tartrate [Lopressor] 50 mg tablet 50 mg PO BID Patient Comments: TAKE 1 TABLET BY MOUTH TWICE A DAY amlodipine 5 mg tablet 5 mg PO BID Patient Comments: TAKE 1 TABLET BY MOUTH TWICE A DAY Rx Instructions: Hold if BP below 110/80 Give on /Th/Sat/Sun Referrals: Lore Castañeda MD [Primary Care Provider] - In 1 week Problem List Clinical Impression: Closed pelvic fracture, ESRD (end stage renal disease) Patient/Caregiver Discharge Instructions Discharge Activity: activity as tolerated Education Materials: How B[employer] Heal Additional Instructions: Thank you for the opportunity for serving you today. You are stable for discharged . You are advised to: Follow-up with your PCP in 1 to 2 days Return to ED for worsening of symptoms Increase oral fluids Take medication as prescribed Toe-touch weightbearing on the left lower extremity with crutches x 2 weeks advance as tolerated Print Language: Tanzanian Stand Alone Forms: [employer] Award Info., Work/School Release, Patient Portal Info Letter PA/BROKER IN CHARGE Supervising Physician PA/BROKER IN CHARGE Supervising Physician: MD Arlin
--- NOTE | 2025-05-26 13:10 | EKG_ITS ---
[facility] Test Date: 2025-05-26 Pat Name: YAZAN WHITMORE Department: Room: - Gender: Male [employer]: : 1965 Requested By: Librado Mathis Order Number: [id number] Reading MD: Librado Mathis Measurements Intervals [place] Rate: 76 P: 53 NM: 187 QRS: 19 QRSD: 104 T: 84 QT: 422 QTc: 477 Interpretive Statements SINUS RHYTHM Compared to ECG 04/06/2024 11:00:19 Ventricular premature complex(es) no longer present /store/S0/[id number]/ecg/[id number].pdf
--- NOTE | 2025-05-26 13:10 | XR_ITS ---
EXAMINATION: AP chest single view TECHNIQUE: AP portable upright chest single view Date and time: May 26, 2025 1346 hours, comparison June 16, 2024 INDICATIONS: Patient fell today with injury to the chest, chest pain FINDINGS: Mild enlargement cardiac contour Apparent elevation left hemidiaphragm Prominent vascular congestion No pneumothorax Suspicious for nondisplaced fracture right fifth rib anteriorly IMPRESSION: No pneumothorax Recommend lateral chest to follow-up to confirm elevation left hemidiaphragm Suspicious for nondisplaced fracture right fifth rib anteriorly
[2025-05-26] MEDS: ONDANSETRON INJ 2 MG/ML INJ 2 ML 4 MG IVP (13:40)
[2025-05-26] MEDS: MORPHINE SULF INJ 4 MG/ML VIAL IVP (13:44)
[2025-05-26 13:46] LABS: Basophils # (Auto) 0.1 Thou/mm3 (0.0-0.2); Basophils % (Auto) 1 % (0-2.5); Eosinophils # (Auto) 0.3 Thou/mm3 (0.0-0.5); Eosinophils % (Auto) 3 % (0-10); Hematocrit 32.0 % (41.0-53.0); Hemoglobin 10.4 g/dL (13.5-16.0); Immature Granulocytes Auto 0.07 Thou/mm3 (0.00-0.00); Lymphocytes # (Auto) 0.7 Thou/mm3 (1.0-4.8); Lymphocytes % (Auto) 6 % (10-50); Mean Corpuscular HGB Conc 32.5 g/dl (31.0-37.0); Mean Corpuscular Hemoglobin 28.6 pg (25.0-35.0); Mean Corpuscular Volume 88 fL (80-100); Monocytes # (Auto) 0.9 Thou/mm3 (0.0-0.8); Monocytes % (Auto) 8 % (0-12); Neutrophils # (Auto) 9.2 Thou/mm3 (1.8-7.7); Neutrophils % (Auto) 82 % (37-80); Nucleated Red Blood Cell # 0.00 Thou/mm3 (0.00-0.00); Nucleated Red Blood Cell % 0 /100 WBC (0); Platelet Count 258 Thou/mm3 (140-440); RDW Standard Deviation 49.2 fL (35.1-43.9); Red Blood Count 3.64 Miln/mm3 (4.50-5.90); White Blood Count 11.3 Thou/mm3 (3.8-10.6)
[2025-05-26 14:04] LABS: B-Type Natriuretic Peptide 202 pg/mL (0-100)
[2025-05-26 14:09] LABS: Partial Thromboplastin Time 29.2 Seconds (22.0-36.0)
[2025-05-26 14:20] VITALS: BP 140/91; PULSE 74; RESP 19; TEMP 36.8; O2SAT 97
[2025-05-26 14:22] LABS: Alanine Aminotransferase 10 U/L (10-49); Albumin, Serum 3.5 gm/dL (3.5-5.0); Albumin/Globulin Ratio 0.9 (1.2-2.2); Alkaline Phosphatase 103 U/L (46-116); Anion Gap 12 (7-16); Aspartate Amino Transferase 11 U/L (0-34); BUN/Creatinine Ratio 4 Ratio (12-20); Bilirubin,Total < 0.2 mg/dL (0.3-1.2); Blood Urea Nitrogen 59 mg/dL (9-23); Calcium 8.5 mg/dL (8.3-10.6); Calcium (Corrected) 8.9 mg/dL (8.5-10.1); Carbon Dioxide 27.9 mMol/L (20.0-31.0); Chloride 94 mMol/L (98-107); Creatinine (Component) 13.2 mg/dL (0.6-1.3); Estimated Creatinine Clearance 7.4 mL/min (>60); Globulin 3.8 gm/dL (2.3-3.5); Glucose 114 mg/dL (74-106); Magnesium 2.2 mg/dL (1.6-2.6); Osmolality,Calculated 285 (275-295); Potassium 3.5 mMol/L (3.4-5.1); Sodium 134 mMol/L (136-145); Total Protein 7.3 gm/dL (5.7-8.2); Troponin I < 0.020 ng/mL (0.0-0.045); eGFR 4 See Note
--- NOTE | 2025-05-26 16:02 | PC.SS ---
SS follow up note: set up transportation with [facility] [phone], Reference # [id number].
[2025-05-26 16:18] VITALS: BP 158/85; PULSE 79; RESP 15; TEMP 36.9; O2SAT 95
[2025-05-26 18:38] VITALS: BP 166/97; PULSE 89; RESP 18; TEMP 36.5; O2SAT 98
[2025-05-26 19:51] VITALS: BP 159/90; PULSE 88; RESP 18; TEMP 36.7; O2SAT 96
[2025-05-26] MEDS: MORPHINE SULF INJ 4 MG/ML VIAL IM (20:09)
== END 2025-05-26 21:35 | disposition home or self-care (01) ==
PROVIDERS: Nurse Practitioner Family; Emergency Provider Emergency Medicine; PCP Family Medicine
DX: S32.512A Fracture of superior rim of left pubis, initial encounter for closed fracture (principal); N18.6 End stage renal disease; S29.9XXA Unspecified injury of thorax, initial encounter; I12.0 Hypertensive chronic kidney disease with stage 5 chronic kidney disease or end stage renal disease; E11.22 Type 2 diabetes mellitus with diabetic chronic kidney disease; W18.30XA Fall on same level, unspecified, initial encounter; Z99.2 Dependence on renal dialysis
CPT/HCPCS: 36415; 71045; 73502; 80053; 83735; 83880; 84484; 85025; 85730; 93005; 96372; 96374; 96375; 99284; J2270; J2405